=== PATIENT | female | born 1930 | race Caucasian/White ===

== ENCOUNTER 2018-05-28 09:50 | Inpatient (IN) | payer MEDICARE, MEDICAID ==
[2018-05-28] MEDS ORDERED: NORMODYNE PO ONE (10:47)
--- NOTE | 2018-05-28 10:52 | Emergency Department Report ---
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 patient woke up at 9 AM with symptoms. She will woke up feeling "woozy" and had difficulty gripping and holding objects with her left hand. She denies any pain, nausea, vomiting, chest pain, or shortness of breath. She also complains of bilateral lower extremity weakness. Patient takes aspirin 81 mg every morning, labetalol 100 mg twice a day and losartan 100 mg at night. She did not take any of her medications this morning because she did not feel good. She is otherwise compliant. PMD: Anaya duran - Related Data Allergies/Adverse Reactions: Allergies Allergy/AdvReac Type Severity Reaction Status Date / Time No Known Allergies Allergy Unverified 05/28/18 10:18 ED Review of Systems ROS: Stated complaint: HEAD PAIN/HTN Other details as noted in HPI Comment: All other systems reviewed and negative ED Past Medical Hx - Past Medical History Previous Medical History?: Yes Hx Hypertension: Yes - Surgical History Additional Surgical History: right shoulder sx - Social History Smoking Status: Never Smoker ED Neuro Physical Exam - General Limitations: Language Barrier Suspected Stroke: Yes - NIHSS Assessment Interval: Baseline 1a. Level of Consciousness: alert/keenly responsive 1b. LOC Questions: answers 1 question correctly 1c. LOC Commands: performs tasks correctly 2. Best Gaze: normal 3. Visual: no visual loss 4. Facial Palsy: normal symmetrical movement 5b. Motor Arm Right: no drift 5a. Motor Arm Left: no drift 6a. Motor Leg Left: no drift 6b. Motor Leg Right: no drift 7. Limb Ataxia: absent 8. Sensory: normal 9. Best Language: no aphasia 10. Dysarthria: normal 11. Extinction/Inattention: no abnormality Total Score: 1 Stroke Severity: Minor Stroke - Other Other exam information: General: No limitations, patient is alert in no acute distress Head exam: Atraumatic, normocephalic Eyes exam: Normal appearance, pupils equal reactive to light, extraocular movements intact ENT: Moist mucous membrane, normal oropharynx Neck exam: Normal inspection, full range of motion, no meningismus nontender Respiratory exam: Clear to auscultation bilateral, no wheezes, rales, crackles Cardiovascular: Normal rate and rhythm, normal heart sounds Abdomen: Soft, nondistended, and nontender, with normal bowel sounds, no rebound, or guarding Extremity: Full range of motion normal inspection no deformity Back: Normal Inspection, full range of motion, no tenderness Neurologic: Alert, oriented to place and self and not to year, cranial nerves intact, answers left hand ocular care technologist appear weak but the patient encouraged to squeeze harder it if is equal to the right side. Psychiatric: normal affect, normal mood Skin: Warm, dry, intact ED Course Vital Signs 05/28/18 05/28/18 05/28/18 10:08 10:11 10:15 Temperature 97.0 F L Pulse Rate 74 76 69 Respiratory 12 16 17 Rate Blood Pressure 222/80 Blood Pressure [Right] O2 Sat by Pulse 98 99 98 Oximetry 05/28/18 05/28/18 05/28/18 10:16 10:31 10:45 Temperature 97.0 F L Pulse Rate 76 71 79 Respiratory 16 18 12 Rate Blood Pressure 222/80 204/83 Blood Pressure 222/80 [Right] O2 Sat by Pulse 99 98 99 Oximetry 05/28/18 05/28/18 05/28/18 11:01 11:15 11:31 Temperature Pulse Rate 74 82 73 Respiratory 16 11 L 14 Rate Blood Pressure 204/83 204/83 204/83 Blood Pressure [Right] O2 Sat by Pulse 97 99 99 Oximetry 05/28/18 05/28/18 05/28/18 11:45 12:01 12:15 Temperature Pulse Rate 78 74 75 Respiratory 12 16 17 Rate Blood Pressure 191/78 204/83 190/73 Blood Pressure [Right] O2 Sat by Pulse 97 97 97 Oximetry 05/28/18 05/28/18 12:31 12:45 Temperature Pulse Rate 72 72 Respiratory 18 20 Rate Blood Pressure 190/73 176/62 Blood Pressure [Right] O2 Sat by Pulse 97 97 Oximetry - Lab Data Result diagrams: 05/28/18 10:49 05/28/18 10:49 Lab Results 05/28/18 05/28/18 05/28/18 Range/Units 10:49 10:49 10:49 WBC 5.6 (4.5-11.0) K/mm3 RBC 4.15 (3.65-5.03) M/mm3 Hgb 12.7 (10.1-14.3) gm/dl Hct 37.1 (30.3-42.9) % MCV 90 (79-97) fl MCH 31 (28-32) pg MCHC 34 (30-34) % RDW 13.1 L (13.2-15.2) % Plt Count 149 (140-440) K/mm3 Lymph % (Auto) 25.5 (13.4-35.0) % [place] % (Auto) 8.6 H (0.0-7.3) % Eos % (Auto) 1.7 (0.0-4.3) % Baso % (Auto) 0.3 (0.0-1.8) % Lymph # 1.4 (1.2-5.4) K/mm3 [place] # 0.5 (0.0-0.8) K/mm3 Eos # 0.1 (0.0-0.4) K/mm3 Baso # 0.0 (0.0-0.1) K/mm3 Seg Neutrophils % 63.9 (40.0-70.0) % Seg Neutrophils # 3.6 (1.8-7.7) K/mm3 PT 12.4 (12.2-14.9) Sec. INR 0.89 (0.87-1.13) APTT 43.9 H (24.2-36.6) Sec. Thrombin Time 16.3 (15.1-19.6) Sec. Sodium (137-145) mmol/L Potassium (3.6-5.0) mmol/L Chloride (98-107) mmol/L Carbon Dioxide (22-30) mmol/L Anion Gap mmol/L BUN (7-17) mg/dL Creatinine (0.7-1.2) mg/dL Estimated GFR ml/min BUN/Creatinine Ratio % Glucose (65-100) mg/dL Calcium (8.4-10.2) mg/dL Total Bilirubin (0.1-1.2) mg/dL AST (5-40) units/L ALT (7-56) units/L Alkaline Phosphatase (35-129) units/L Total Creatine Kinase 77 (30-135) units/L CK-MB (CK-2) 3.5 (0.0-4.0) ng/mL CK-MB (CK-2) Rel Index 4.5 H (0-4) Troponin T 0.018 (0.00-0.029) ng/mL Total Protein (6.3-8.2) g/dL Albumin (3.9-5) g/dL Albumin/Globulin Ratio % Urine Color (Yellow) Urine Turbidity (Clear) Urine pH (5.0-7.0) Ur Specific [place] (1.003-1.030) Urine Protein (Negative) mg/dL Urine Glucose (UA) (Negative) mg/dL Urine Ketones (Negative) mg/dL Urine Blood (Negative) Urine Nitrite (Negative) Urine Bilirubin (Negative) Urine Urobilinogen (<2.0) mg/dL Ur Leukocyte Esterase (Negative) Urine WBC (Auto) (0.0-6.0) /HPF Urine RBC (Auto) (0.0-6.0) /HPF 05/28/18 05/28/18 Range/Units 10:49 11:59 WBC (4.5-11.0) K/mm3 RBC (3.65-5.03) M/mm3 Hgb (10.1-14.3) gm/dl Hct (30.3-42.9) % MCV (79-97) fl MCH (28-32) pg MCHC (30-34) % RDW (13.2-15.2) % Plt Count (140-440) K/mm3 Lymph % (Auto) (13.4-35.0) % [place] % (Auto) (0.0-7.3) % Eos % (Auto) (0.0-4.3) % Baso % (Auto) (0.0-1.8) % Lymph # (1.2-5.4) K/mm3 Baker # (0.0-0.8) K/mm3 Eos # (0.0-0.4) K/mm3 Baso # (0.0-0.1) K/mm3 Seg Neutrophils % (40.0-70.0) % Seg Neutrophils # (1.8-7.7) K/mm3 PT (12.2-14.9) Sec. INR (0.87-1.13) APTT (24.2-36.6) Sec. Thrombin Time (15.1-19.6) Sec. Sodium 142 (137-145) mmol/L Potassium 4.3 (3.6-5.0) mmol/L Chloride 102.7 (98-107) mmol/L Carbon Dioxide 26 (22-30) mmol/L Anion Gap 18 mmol/L BUN 22 H (7-17) mg/dL Creatinine 1.2 (0.7-1.2) mg/dL Estimated GFR 43 ml/min BUN/Creatinine Ratio 18 % Glucose 98 (65-100) mg/dL Calcium 9.3 (8.4-10.2) mg/dL Total Bilirubin 0.50 (0.1-1.2) mg/dL AST 20 (5-40) units/L ALT 17 (7-56) units/L Alkaline Phosphatase 48 (35-129) units/L Total Creatine Kinase (30-135) units/L CK-MB (CK-2) (0.0-4.0) ng/mL CK-MB (CK-2) Rel Index (0-4) Troponin T (0.00-0.029) ng/mL Total Protein 6.4 (6.3-8.2) g/dL Albumin 4.2 (3.9-5) g/dL Albumin/Globulin Ratio 1.9 % Urine Color Straw (Yellow) Urine Turbidity Clear (Clear) Urine pH 6.0 (5.0-7.0) Ur Specific [place] 1.005 (1.003-1.030) Urine Protein <15 mg/dl (Negative) mg/dL Urine Glucose (UA) Neg (Negative) mg/dL Urine Ketones Neg (Negative) mg/dL Urine Blood Sm (Negative) Urine Nitrite Neg (Negative) Urine Bilirubin Neg (Negative) Urine Urobilinogen < 2.0 (<2.0) mg/dL Ur Leukocyte Esterase Sm (Negative) Urine WBC (Auto) < 1.0 (0.0-6.0) /HPF Urine RBC (Auto) 1.0 (0.0-6.0) /HPF - EKG Data -: EKG Interpreted by Ut EKG shows normal: sinus rhythm, axis (qrs -6), QRS complexes (qrsd 89), ST-T waves (lvh with repol) Rate: normal (76) When compared to previous EKG there are: previous EKG unavailable - Radiology Data Radiology results: report reviewed CT head: 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 No acute intracranial process noted. No change since 2012 - Medical Decision Making Labs and imaging tests do not show any acute findings. Patient will be admitted to the hospital for further workup and evaluation. Provided aspirin and a dose of her a.m. blood pressure medications - Differential Diagnosis TIA, CVA, radiculopathy, neuropathy, infection, dehydration - Thrombolytic Inclusion/Exclusion Thrombolytic Exclusion Criteria: Symptom Onset > 3 Hours (woke up with symptoms) Critical Care Time: No Critical care attestation.: If time is entered above; I have spent that time in minutes in the direct care of this critically ill patient, excluding procedure time. ED Disposition Clinical Impression: Left hand weakness, HTN (hypertension), Dizziness Disposition: -09 OP ADMIT IP TO THIS HOSP Is pt being admited?: Yes Condition: Stable Time of Disposition: 13:11 (Dr Ayala/hosp)
[2018-05-28 11:04] LABS: Basophils % (Auto) 0.3 % (0.0-1.8); Eosinophils # (Auto) 0.1 K/mm3 (0.0-0.4); Eosinophils % (Auto) 1.7 % (0.0-4.3); Hematocrit 37.1 % (30.3-42.9); Hemoglobin 12.7 gm/dl (10.1-14.3); Lymphocytes # (Auto) 1.4 K/mm3 (1.2-5.4); Lymphocytes % (Auto) 25.5 % (13.4-35.0); Mean Corpuscular HGB Conc 34 % (30-34); Mean Corpuscular Volume 90 fl (79-97); Monocytes # (Auto) 0.5 K/mm3 (0.0-0.8); Monocytes % (Auto) 8.6 % (0.0-7.3); Platelet Count 149 K/mm3 (140-440); Red Blood Count 4.15 M/mm3 (3.65-5.03); Red Cell Distribution Width 13.1 % (13.2-15.2)
[2018-05-28 11:25] LABS: INR 0.89 (0.87-1.13)
--- NOTE | 2018-05-28 11:25 | Cat Scan Report ---
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 TECHNIQUE: Sequential CT images without contrast. FINDINGS: Compared to a CT head dated 03/20/12. Diffuse cortical volume loss and chronic white matter changes are again noted. These findings appear appropriate for this persons age. A 1.1 cm chronic focal infarct in the left subinsular region is unchanged. No evidence for hemorrhage, mass or large area of acute ischemia on noncontrast CT. No extra-axial fluid collection. The posterior fossa and contents remain unremarkable. The calvarium, sinuses and mastoid air cells are within normal limits. 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 No acute intracranial process noted. No change since 2011.
[2018-05-28 11:26] LABS: Partial Thromboplastin Time 43.9 Sec. (24.2-36.6); Thrombin Time 16.3 Sec. (15.1-19.6)
[2018-05-28 11:27] LABS: Creatine Kinase MB 3.5 ng/mL (0.0-4.0)
[2018-05-28 11:29] LABS: Albumin 4.2 g/dL (3.9-5); Calcium 9.3 mg/dL (8.4-10.2)
[2018-05-28 12:07] LABS: Bilirubin,Urine NEG (Negative); Blood,Urine SM (Negative); Color,Urine Straw (Yellow); Protein,Urine <15 mg/dL mg/dL (Negative); Urobilinogen,Urine < 2.0 mg/dL (<2.0); WBC,Urine < 1.0 /HPF (0.0-6.0)
[2018-05-28] MEDS ORDERED: ASPIRIN PO ONE (13:09)
[2018-05-28] MEDS ORDERED: ASPIRIN ONE (14:04)
[2018-05-28] MEDS: APRESOLINE IV PRN (20:05)
--- NOTE | 2018-05-28 21:43 | History and Physical Report ---
History of Present Illness Date of examination: 05/28/18 Date of admission: 05/28/18 13:23 Medications and Allergies Allergies Allergy/AdvReac Type Severity Reaction Status Date / Time No Known Allergies Allergy Unverified 05/28/18 10:18 Home Medications Medication Instructions Recorded Confirmed Last Taken Type Aspirin [Adult Aspirin] 81 mg PO DAILY 05/28/18 05/28/18 Unknown History Labetalol [Normodyne TAB] 100 mg PO BID 05/28/18 05/28/18 Unknown History Losartan [Cozaar] 100 mg PO QDAY 05/28/18 05/28/18 Unknown History Active Meds: Active Medications Hydralazine HCl (Apresoline) 10 mg IV Q6HR PRN PRN Reason: Increased Blood Pressure Stop: 06/01/18 19:39 Last Admin: 05/28/18 20:05 Dose: 10 mg Documented by: Pneumococcal Polyvalent Vaccine (Pneumovax 23) 0.5 ml IM .ONCE ONE Stop: 05/29/18 12:01 Exam - Constitutional Vitals: Temp Pulse Resp BP Pulse Ox 98.1 F 76 18 206/73 97 05/28/18 19:25 05/28/18 20:05 05/28/18 19:25 05/28/18 20:05 05/28/18 19:25 Results - Labs CBC & Chem 7: 05/28/18 10:49 05/28/18 10:49 Labs: Laboratory Last Values WBC 5.6 K/mm3 (4.5-11.0) 05/28/18 10:49 RBC 4.15 M/mm3 (3.65-5.03) 05/28/18 10:49 Hgb 12.7 gm/dl (10.1-14.3) 05/28/18 10:49 Hct 37.1 % (30.3-42.9) 05/28/18 10:49 MCV 90 fl (79-97) 05/28/18 10:49 MCH 31 pg (28-32) 05/28/18 10:49 MCHC 34 % (30-34) 05/28/18 10:49 RDW 13.1 % (13.2-15.2) L 05/28/18 10:49 Plt Count 149 K/mm3 (140-440) 05/28/18 10:49 Lymph % (Auto) 25.5 % (13.4-35.0) 05/28/18 10:49 [place] % (Auto) 8.6 % (0.0-7.3) H 05/28/18 10:49 Eos % (Auto) 1.7 % (0.0-4.3) 05/28/18 10:49 Baso % (Auto) 0.3 % (0.0-1.8) 05/28/18 10:49 Lymph # 1.4 K/mm3 (1.2-5.4) 05/28/18 10:49 [place] # 0.5 K/mm3 (0.0-0.8) 05/28/18 10:49 Eos # 0.1 K/mm3 (0.0-0.4) 05/28/18 10:49 Baso # 0.0 K/mm3 (0.0-0.1) 05/28/18 10:49 Seg Neutrophils % 63.9 % (40.0-70.0) 05/28/18 10:49 Seg Neutrophils # 3.6 K/mm3 (1.8-7.7) 05/28/18 10:49 PT 12.4 Sec. (12.2-14.9) 05/28/18 10:49 INR 0.89 (0.87-1.13) 05/28/18 10:49 APTT 43.9 Sec. (24.2-36.6) H 05/28/18 10:49 Thrombin Time 16.3 Sec. (15.1-19.6) 05/28/18 10:49 Sodium 142 mmol/L (137-145) 05/28/18 10:49 Potassium 4.3 mmol/L (3.6-5.0) 05/28/18 10:49 Chloride 102.7 mmol/L (98-107) 05/28/18 10:49 Carbon Dioxide 26 mmol/L (22-30) 05/28/18 10:49 Anion Gap 18 mmol/L 05/28/18 10:49 BUN 22 mg/dL (7-17) H 05/28/18 10:49 Creatinine 1.2 mg/dL (0.7-1.2) 05/28/18 10:49 Estimated GFR 43 ml/min 05/28/18 10:49 BUN/Creatinine Ratio 18 % 05/28/18 10:49 Glucose 98 mg/dL (65-100) 05/28/18 10:49 Calcium 9.3 mg/dL (8.4-10.2) 05/28/18 10:49 Total Bilirubin 0.50 mg/dL (0.1-1.2) 05/28/18 10:49 AST 20 units/L (5-40) 05/28/18 10:49 ALT 17 units/L (7-56) 05/28/18 10:49 Alkaline Phosphatase 48 units/L (35-129) 05/28/18 10:49 Total Creatine Kinase 77 units/L (30-135) 05/28/18 10:49 CK-MB (CK-2) 3.5 ng/mL (0.0-4.0) 05/28/18 10:49 CK-MB (CK-2) Rel Index 4.5 (0-4) H 05/28/18 10:49 Troponin T 0.018 ng/mL (0.00-0.029) 05/28/18 10:49 Total Protein 6.4 g/dL (6.3-8.2) 05/28/18 10:49 Albumin 4.2 g/dL (3.9-5) 05/28/18 10:49 Albumin/Globulin Ratio 1.9 % 05/28/18 10:49 Urine Color Straw (Yellow) 05/28/18 11:59 Urine Turbidity Clear (Clear) 05/28/18 11:59 Urine pH 6.0 (5.0-7.0) 05/28/18 11:59 Ur Specific [place] 1.005 (1.003-1.030) 05/28/18 11:59 Urine Protein <15 mg/dl mg/dL (Negative) 05/28/18 11:59 Urine Glucose (UA) Neg mg/dL (Negative) 05/28/18 11:59 Urine Ketones Neg mg/dL (Negative) 05/28/18 11:59 Urine Blood Sm (Negative) 05/28/18 11:59 Urine Nitrite Neg (Negative) 05/28/18 11:59 Urine Bilirubin Neg (Negative) 05/28/18 11:59 Urine Urobilinogen < 2.0 mg/dL (<2.0) 05/28/18 11:59 Ur Leukocyte Esterase Sm (Negative) 05/28/18 11:59 Urine WBC (Auto) < 1.0 /HPF (0.0-6.0) 05/28/18 11:59 Urine RBC (Auto) 1.0 /HPF (0.0-6.0) 05/28/18 11:59
[2018-05-28] MEDS ORDERED: NON-FORMULARY (Losartan [Cozaar] 100 MG) PO SCH (21:45)
[2018-05-28] MEDS ORDERED: ZOFRAN IV PRN (21:46)
[2018-05-28] MEDS ORDERED: DILAUDID IV PRN (21:46)
[2018-05-28] MEDS ORDERED: SODIUM CHLORIDE FLUSH SYRINGE 10 ML IV PRN ×2 (21:46→21:49)
[2018-05-28] MEDS ORDERED: PEPCID PO SCH (22:00)
[2018-05-28] MEDS ORDERED: COZAAR PO SCH (22:00)
[2018-05-28] MEDS: COZAAR PO SCH (22:29)
[2018-05-28] MEDS: PEPCID PO SCH (22:30)
[2018-05-28] MEDS: NORMODYNE PO SCH (22:30)
[2018-05-28] MEDS: TYLENOL PO PRN (22:33)
[2018-05-29] MEDS: HALFPRIN EC PO SCH ×2 (05:13→11:58)
[2018-05-29] MEDS: SODIUM CHLORIDE FLUSH SYRINGE 10 ML IV SCH ×3 (05:14→22:28)
[2018-05-29 05:25] LABS: Basophils % (Auto) 0.4 % (0.0-1.8); Eosinophils # (Auto) 0.1 K/mm3 (0.0-0.4); Eosinophils % (Auto) 2.3 % (0.0-4.3); Hematocrit 33.4 % (30.3-42.9); Hemoglobin 11.7 gm/dl (10.1-14.3); Lymphocytes # (Auto) 2.1 K/mm3 (1.2-5.4); Lymphocytes % (Auto) 35.1 % (13.4-35.0); Mean Corpuscular HGB Conc 35 % (30-34); Mean Corpuscular Volume 89 fl (79-97); Monocytes # (Auto) 0.6 K/mm3 (0.0-0.8); Monocytes % (Auto) 10.8 % (0.0-7.3); Platelet Count 158 K/mm3 (140-440); Red Blood Count 3.75 M/mm3 (3.65-5.03); Red Cell Distribution Width 12.7 % (13.2-15.2)
[2018-05-29] MEDS: APRESOLINE IV PRN (05:41)
--- NOTE | 2018-05-29 06:35 | Event Note ---
Date: 05/28/18 See H/p in reports TIA
[2018-05-29 06:43] LABS: Albumin 3.7 g/dL (3.9-5); Calcium 8.9 mg/dL (8.4-10.2); Chol/HDL Ratio 3.8 %
--- NOTE | 2018-05-29 07:26 | History and Physical Report ---
CHIEF COMPLAINT: Left-sided weakness since a.m. HISTORY OF PRESENT ILLNESS: An 87-year-old female with a past medical history of hypertension, presents with left-sided weakness since 9 a.m. The patient felt woozy and had difficulty gripping objects in the left hand. No chest pain or shortness of breath. The patient takes aspirin 81 mg and labetalol 100 mg twice a day. The gripping weakness resolved to some extent in the Emergency Room. The patient is being admitted for possible transient ischemic attack. No chest pain. No exacerbating or relieving factors. PAST MEDICAL HISTORY: Hypertension. PAST SURGICAL HISTORY: Right shoulder surgery. SOCIAL HISTORY: Does not smoke. Family is supportive. FAMILY HISTORY: Hypertension. 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 There is a language barrier present. Review of systems is otherwise negative. PHYSICAL EXAMINATION: GENERAL: Elderly female, cooperative during examination. VITAL SIGNS: Blood pressure is 200/60 and repeat blood pressure is ____, temperature 98.1, pulse is 82, respirations 17. HEENT: Unremarkable. Pupils equal and reactive. NECK: Supple, no lymphadenopathy, no thyromegaly. LUNGS: Clear to auscultation and percussion. Good air entry. CARDIOVASCULAR: S1, S2 heard. No gallop, no murmur, no rub. Apical impulse in left fifth intercostal space and midclavicular line. ABDOMEN: Soft and benign. No hepatosplenomegaly. No guarding, no rigidity. Hernial orifices are normal. EXTREMITIES: Good pedal pulses. No pedal edema. CENTRAL NERVOUS SYSTEM: Alert and oriented x 4, nonfocal exam. Left upper extremity weakness is slightly present. Power is otherwise 5/5 in left lower extremity with 4/5 in left upper extremity. LABORATORY DATA: Electrolytes are normal. BUN and creatinine are 22 and 1.2. H and H are normal, 12.7 and 37.1. Urine normal. DIAGNOSTIC DATA: CT of the head shows atrophy and microangiopathic ischemic disease. Focal chronic infarcts in the left subinsular region. EKG, normal sinus rhythm. ASSESSMENT AND PLAN: 1. Transient ischemic attack, nearly resolved. The patient to get MRI/MRA, echocardiogram, and carotid duplex scan. Also, Neurology consult. Aspirin initiated. 2. Hypertension. Continue antihypertensives. 3. Deep venous thrombosis prophylaxis, Lovenox 40 mg subcutaneous daily and gastrointestinal prophylaxis. [facility]# [id number] ANJU/MANJEET
[2018-05-29] MEDS: PEPCID PO SCH ×2 (11:58→22:28)
[2018-05-29] MEDS ORDERED: AFLURIA QUAD 2018-2019 SYRINGE IM ONE (12:00)
[2018-05-29] MEDS ORDERED: PNEUMOVAX 23 IM ONE (12:00)
[2018-05-29] MEDS: NORMODYNE PO SCH ×2 (12:10→22:27)
[2018-05-29] MEDS: COZAAR PO SCH (12:11)
[2018-05-29] MEDS: TYLENOL PO PRN (12:11)
--- NOTE | 2018-05-29 12:36 | Vascular Lab Report ---
FINAL REPORT EXAM: VL CAROTID DUPLEX BILAT HISTORY: stroke COMPARISON: None. TECHNIQUE: Duplex Doppler ultrasound of the carotid arteries was performed. FINDINGS: There is heterogeneous plaque in the right carotid bulb extending to the right internal carotid arter y, with less than 50 percent stenosis. The right vertebral artery is antegrade in flow. There is heterogeneous plaque in the left carotid bulb extending into the left internal carotid arter y, with elevation of velocities suggestive of 50-69 percent stenosis. The left vertebral artery is no t visualized Peak systolic velocities (cm/sec) are as follows: Right common carotid artery: 97.9 Right internal carotid artery: 112.1 Right external carotid artery: 168.3 Left common carotid artery: 82.8 Left internal carotid artery: 134.7 Left external carotid artery: 118.3 Peak systolic velocity ratio between the right internal carotid artery and the right common carotid a rtery: 1.2 Peak systolic velocity ratio between the left internal carotid artery and left common carotid artery: 1.6 IMPRESSION: 1. Heterogeneous atherosclerotic plaque in the right carotid bulb extending to the right internal car otid artery, with less than 50 percent stenosis. 2. Heterogeneous atherosclerotic plaque in the left carotid bulb extending into the left internal car otid artery, with elevation of the peak systolic velocity 2134.7 centimeters/second, suggestive of 50 -69 percent stenosis. 3. Nonvisualization of the left vertebral artery.
[2018-05-29] MEDS ORDERED: ATIVAN IV PRN (13:08)
--- NOTE | 2018-05-29 14:03 | Consultation ---
History of Present Illness Consult date: 05/29/18 Requesting physician: MANUEL PENNINGTON Reason for Consult: left upper extremity weakness History of present illness: 87 yr old female with hx of hypertension and previous stroke several yrs ago, presented to ED yesterday with complaint of numbness and weakness of the left upper extremity. She awakened in the a.m. with these symptoms. She and her speak Trin[place], so interview was a bit difficult. states that he previous stroke was several yrs ago and she has recovered from it. She has been taking her ASA daily as well as BP meds. She denies chest pain, palpitations. Past History Past Medical History: hypertension, stroke Past Surgical History: Other (right shoulder surgery) Social history: , lives with family. denies: smoking, alcohol abuse Medications and Allergies Allergies Allergy/AdvReac Type Severity Reaction Status Date / Time No Known Allergies Allergy Unverified 05/28/18 10:18 Home Medications Medication Instructions Recorded Confirmed Last Taken Type Aspirin [Adult Aspirin] 81 mg PO DAILY 05/28/18 05/28/18 Unknown History Labetalol [Normodyne TAB] 100 mg PO BID 05/28/18 05/28/18 Unknown History Losartan [Cozaar] 100 mg PO QDAY 05/28/18 05/28/18 Unknown History Active Meds: Active Medications Acetaminophen (Tylenol) 650 mg PO Q4H PRN PRN Reason: Pain MILD(1-3)/Fever >100.5/AMADO Last Admin: 05/29/18 12:11 Dose: 650 mg Documented by: Aspirin (Halfprin Ec) 81 mg PO DAILY [facility] Last Admin: 05/29/18 11:58 Dose: 81 mg Documented by: Atorvastatin Calcium (Lipitor) 40 mg PO QHS [facility] Last Admin: 05/28/18 22:30 Dose: 40 mg Documented by: Famotidine (Pepcid) 10 mg PO BID [facility] Last Admin: 05/29/18 11:58 Dose: 10 mg Documented by: Hydralazine HCl (Apresoline) 10 mg IV Q6HR PRN PRN Reason: Increased Blood Pressure Stop: 06/01/18 19:39 Last Admin: 05/29/18 05:41 Dose: 10 mg Documented by: Hydromorphone HCl (Dilaudid) 0.25 mg IV Q3H PRN PRN Reason: Pain, Moderate (4-6) Labetalol HCl (Normodyne) 100 mg PO BID [facility] Last Admin: 05/29/18 12:10 Dose: 100 mg Documented by: Lorazepam (Ativan) 2 mg IV Q4H PRN PRN Reason: Agitation Losartan Potassium (Cozaar) 100 mg PO QDAY [facility] Last Admin: 05/29/18 12:11 Dose: 100 mg Documented by: Ondansetron HCl (Zofran) 4 mg IV Q8H PRN PRN Reason: Nausea And Vomiting Sodium Chloride (Sodium Chloride Flush Syringe 10 Ml) 10 ml IV BID [facility] Last Admin: 05/29/18 12:14 Dose: 10 ml Documented by: Sodium Chloride (Sodium Chloride Flush Syringe 10 Ml) 10 ml IV PRN PRN PRN Reason: LINE FLUSH Sodium Chloride (Sodium Chloride Flush Syringe 10 Ml) 10 ml IV PRN PRN PRN Reason: LINE FLUSH Review of Systems All systems: negative (Pt. speaks Trin[place], so difficullt to obtain ROS) Physical Examination - Vital Signs Vital Signs: Vital Signs Pulse Resp Pulse Ox 74 12 98 05/28/18 10:08 05/28/18 10:08 05/28/18 10:08 - Physical Exam Narrative exam: Neurological exam - Lying in bed comfortably. Responds appropriately, follows commands well. Speech - fluent in [place], helping. CMN's - EOMs full, no nystagmus. V-1 thru V-3 intact, face symmetric Hearing down on the left. tongue midline. Motor - symmetric in lower extremities. Rt. upper extremity - full strength. Left arm - full range of motion. finger extensors - 3/5, interossei - 3-/5 straddle carrier operator - 3/5, supinate/pronate 4/5. Proximal strength - 4+/5 Reflexes - +1 on rt., trace on leeft. Sensory - decreased touch/pin in left fingers to the wrist. Remaining limbs intact. Cerebellar - FTN - pastpointing on the left Justice intact. incomplete on left. Cannot do fine finger movements with left hand. - Assessment Assessment Interval: Baseline - Level of Consciousness 1a. Level of Consciousness: alert/keenly responsive - LOC Questions 1b. LOC Questions: answers 1 question correctly - LOC Command 1c. LOC Commands: performs tasks correctly - Best Gaze 2. Best Gaze: normal - Visual 3. Visual: no visual loss - Facial Palsy 4. Facial Palsy: normal symmetrical movement - Motor Arm 5b. Motor Arm Right: no drift - Motor Leg 6a. Motor Leg Left: no drift - Limb Ataxia 7. Limb Ataxia: absent - Sensory 8. Sensory: normal - Best Language 9. Best Language: no aphasia - Dysarthria 10. Dysarthria: normal - Extinction and Inattention 11. Extinction/Inattention: no abnormality Results - Laboratory Findings CBC and BMP: 05/29/18 04:59 05/29/18 04:49 Abnormal Lab Findings: Abnormal Labs 05/28/18 05/28/18 05/28/18 10:49 10:49 10:49 MCHC RDW 13.1 L Lymph % (Auto) [place] % (Auto) 8.6 H APTT 43.9 H BUN Glucose CK-MB (CK-2) Rel Index 4.5 H Total Protein Albumin LDL Cholesterol Direct 05/28/18 05/29/18 05/29/18 10:49 04:49 04:59 MCHC 35 H RDW 12.7 L Lymph % (Auto) 35.1 H [place] % (Auto) 10.8 H APTT BUN 22 H 27 H Glucose 102 H CK-MB (CK-2) Rel Index Total Protein 6.0 L Albumin 3.7 L LDL Cholesterol Direct 140 H Assessment and Plan 87 yr old female with hx of hypertension, presented to ED yesterday having awakened with numbness and weakness of the left hand. ER notes also mention that she felt "woozy" and a little off balance in the legs. 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 Suspect pt has had another subcortical event which would involve rt. hemisphere. Echo - reveals hyperdynamic lt. ventricle. dopplers reveal 50 to 60% occlusion, atherosclerotic disease. Plan - add atorvastatin to her regimen MRI scan pending. PT/OT
--- NOTE | 2018-05-29 14:16 | Progress Note ---
Assessment and Plan Possible CVA --Monitor the patient to remote telemetry -Continue on on aspirin and statin, will follow recommendation of neurology - CT scan of the head obtained in the ER and shows no acute intracranial process -Wait for MRI of the head, carotid Doppler, 2-D echocardiogram results - We will also get hemoglobin A1c level and fasting lipid panel - We'll place on GI prophylaxis to avoid stress ulcer - Consult PTOT and speech therapist - Keep the patient nothing by mouth for now - IV hydration with D5 normal saline, - monitor blood glucose and place on sliding scale of insulin, as patient will be nothing by mouth and on D5 - Further management will be based on pending lab results and imaging studies Hypertension, will resume antihypertensive Mild to moderate malnutrition, will consult dietary DVT prophylaxis, Lovenox Physical exam: GENERAL: Elderly female lying on bed appeared to be in no discomfort. HEENT: Normocephalic. Atraumatic. No conjunctival congestion or icterus. Patient has moist mucous membranes. NECK: Supple. Trachea midline. CHEST/LUNGS: Clear to auscultated bilaterally, breathing nonlabored. No wheezes crackles or rhonchi. HEART/CARDIOVASCULAR: Regular in rate and rhythm. S1 and S2 positive. ABDOMEN: Abdomen is soft, nontender. Patient has normal bowel sounds. SKIN: There is no rash. Warm and dry. NEURO: Follows command. MUSCULOSKELETAL: No joint effusion or tenderness. EXTRIMITY: No edema, no cyanosis or clubbing. PSYCH: Cooperative. Subjective Date of service: 05/29/18 Interval history: Patient seen and examined. Medical records and medication list reviewed. No acute event overnight noted by the RN. Patient denies any chest pain or difficulty breathing. Patient is tolerating diet. Discussed plan of care at bedside with patient and her family. Objective - Constitutional Vitals: Vital Signs - 12hr 05/29/18 05/29/18 05/29/18 04:35 05:41 10:00 Temperature 98.1 F Pulse Rate 78 72 Respiratory 18 18 Rate Blood Pressure 166/139 179/59 O2 Sat by Pulse 96 Oximetry 05/29/18 05/29/18 12:10 12:11 Temperature Pulse Rate 90 90 Respiratory Rate Blood Pressure 160/78 160/77 O2 Sat by Pulse Oximetry - Labs CBC & Chem 7: 05/29/18 04:59 05/29/18 04:49 Labs: Abnormal lab results 05/29/18 05/29/18 Range/Units 04:49 04:59 MCHC 35 H (30-34) % RDW 12.7 L (13.2-15.2) % Lymph % (Auto) 35.1 H (13.4-35.0) % [place] % (Auto) 10.8 H (0.0-7.3) % BUN 27 H (7-17) mg/dL Glucose 102 H (65-100) mg/dL Total Protein 6.0 L (6.3-8.2) g/dL Albumin 3.7 L (3.9-5) g/dL LDL Cholesterol Direct 140 H (50-130) mg/dL
[2018-05-30] MEDS: APRESOLINE IV PRN (00:09)
[2018-05-30] MEDS: PEPCID PO SCH ×2 (09:55→22:00)
[2018-05-30] MEDS: COZAAR PO SCH (09:55)
[2018-05-30] MEDS: NORMODYNE PO SCH ×2 (09:55→22:01)
[2018-05-30] MEDS: SODIUM CHLORIDE FLUSH SYRINGE 10 ML IV SCH ×2 (09:55→22:02)
[2018-05-30] MEDS: HALFPRIN EC PO SCH (09:55)
[2018-05-30] MEDS ORDERED: PNEUMOVAX 23 IM ONE (12:00)
[2018-05-30] MEDS ORDERED: AFLURIA QUAD 2018-2019 SYRINGE IM ONE (12:00)
--- NOTE | 2018-05-30 18:20 | Progress Note ---
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 Suspect pt has had another subcortical event which would involve rt. hemisphere. Hypertension, will resume antihypertensive Mild to moderate malnutrition, will consult dietary DVT prophylaxis, Lovenox Physical exam: GENERAL: Elderly female lying on bed appeared to be in no discomfort. HEENT: Normocephalic. Atraumatic. No conjunctival congestion or icterus. Patient has moist mucous membranes. NECK: Supple. Trachea midline. CHEST/LUNGS: Clear to auscultated bilaterally, breathing nonlabored. No wheezes crackles or rhonchi. HEART/CARDIOVASCULAR: Regular in rate and rhythm. S1 and S2 positive. ABDOMEN: Abdomen is soft, nontender. Patient has normal bowel sounds. SKIN: There is no rash. Warm and dry. NEURO: Follows command. MUSCULOSKELETAL: No joint effusion or tenderness. EXTRIMITY: No edema, no cyanosis or clubbing. PSYCH: Cooperative. Subjective Date of service: 05/30/18 Interval history: Patient seen and examined. Medical records and medication list reviewed. No acute event overnight noted by the RN. Patient denies any chest pain or difficulty breathing. Patient is tolerating diet. Discussed plan of care at bedside with patient and her family. Objective - Constitutional Vitals: Vital Signs - 12hr 05/30/18 05/30/18 08:20 08:48 Temperature 98.6 F Pulse Rate 94 H Pulse Rate [ 60 From Monitor] Respiratory 20 18 Rate Blood Pressure 179/58 O2 Sat by Pulse 98 Oximetry - Labs CBC & Chem 7: 05/29/18 04:59 05/29/18 04:49
[2018-05-31] MEDS: APRESOLINE IV PRN ×2 (06:00→18:40)
[2018-05-31] MEDS: COZAAR PO SCH (11:17)
[2018-05-31] MEDS: NORMODYNE PO SCH ×2 (11:18→22:50)
[2018-05-31] MEDS: PEPCID PO SCH ×2 (11:18→22:50)
[2018-05-31] MEDS: HALFPRIN EC PO SCH (11:18)
[2018-05-31] MEDS: SODIUM CHLORIDE FLUSH SYRINGE 10 ML IV SCH ×2 (11:19→22:50)
--- NOTE | 2018-05-31 16:16 | Progress Note ---
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 Suspect pt has had another subcortical event which would involve rt. hemisphere. 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 HEENT: Normocephalic. Atraumatic. No conjunctival congestion or icterus. Pat ient has moist mucous membranes. NECK: Supple. Trachea midline. CHEST/LUNGS: Clear to auscultated bilaterally, breathing nonlabored. No wheezes crackles or rhonchi. HEART/CARDIOVASCULAR: Regular in rate and rhythm. S1 and S2 positive. ABDOMEN: Abdomen is soft, nontender. Patient has normal bowel sounds. SKIN: There is no rash. Warm and dry. NEURO: Follows command. MUSCULOSKELETAL: No joint effusion or tenderness. EXTRIMITY: No edema, no cyanosis or clubbing. PSYCH: Cooperative. Subjective Date of service: 05/31/18 Interval history: Patient seen and examined. Medical records and medication list reviewed. No acute event overnight noted by the RN. Patient denies any chest pain or difficulty breathing. Patient is tolerating diet. Discussed plan of care at bedside with patient and her family. Objective - Constitutional Vitals: Vital Signs - 12hr 05/31/18 05/31/18 05/31/18 04:26 06:00 07:57 Temperature 98.0 F 98.2 F Pulse Rate 74 74 105 H Respiratory 15 18 Rate Blood Pressure 176/67 176/67 145/49 O2 Sat by Pulse 95 93 Oximetry 05/31/18 05/31/18 05/31/18 08:53 11:17 11:18 Temperature Pulse Rate 105 H 105 H Respiratory 18 Rate Blood Pressure 145/49 145/49 O2 Sat by Pulse Oximetry 05/31/18 11:33 Temperature 97.9 F Pulse Rate 95 H Respiratory 18 Rate Blood Pressure 172/72 O2 Sat by Pulse 100 Oximetry - Labs CBC & Chem 7: 05/29/18 04:59 05/29/18 04:49
[2018-06-01] MEDS: APRESOLINE IV PRN (07:10)
[2018-06-01] MEDS: HALFPRIN EC PO SCH (10:40)
[2018-06-01] MEDS: PEPCID PO SCH ×2 (10:40→21:49)
[2018-06-01] MEDS: NORMODYNE PO SCH ×2 (10:40→21:50)
[2018-06-01] MEDS: COZAAR PO SCH (10:40)
[2018-06-01] MEDS: SODIUM CHLORIDE FLUSH SYRINGE 10 ML IV SCH ×2 (10:40→21:51)
--- NOTE | 2018-06-01 14:16 | Consultation ---
History of Present Illness Consult date: 06/01/18 Requesting physician: RONAL CALZADA Consult reason: other (mitral stenosis) History of present illness: The patient is an 87 yr old female with a history of hypertension and previous stroke approx 20 yrs ago. Pt is lethargic on evaluation (she received Ativan this morning for attempted MRI) and thus HPI is obtained per her son and . Pt presented to ED 0n 05/28 with complaint of numbness and weakness of the left upper extremity and bilateral lower extremities. The symptoms began around 9AM on the morning of admission. Pt did not complain of any chest pain, SOB, palpitations, n/v, diaphoresis, dizziness or syncope. 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 Per neuro, suspect pt has had another subcortical event which would involve rt. hemisphere. 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 Pt underwent echo on 05/28 which was TDS, showed mod to severe LVH, hyperdynamic LV, EF 75-80%, mod to severe MS, mild MR, mild pulm HTN, mod pericardial effusion, no tamponade physiology is noted. Cardiology has been consulted for mitral stenosis. Past History Past Medical History: hypertension, stroke Past Surgical History: Other (right shoulder surgery) Social history: , lives with family. denies: smoking, alcohol abuse Medications and Allergies Allergies Allergy/AdvReac Type Severity Reaction Status Date / Time No Known Allergies Allergy Unverified 05/28/18 10:18 Home Medications Medication Instructions Recorded Confirmed Last Taken Type Aspirin [Adult Aspirin] 81 mg PO DAILY 05/28/18 05/28/18 Unknown History Labetalol [Normodyne TAB] 100 mg PO BID 05/28/18 05/28/18 Unknown History Losartan [Cozaar] 100 mg PO QDAY 05/28/18 05/28/18 Unknown History Active Meds: Active Medications Acetaminophen (Tylenol) 650 mg PO Q4H PRN PRN Reason: Pain MILD(1-3)/Fever >100.5/AMADO Last Admin: 05/29/18 12:11 Dose: 650 mg Documented by: Aspirin (Halfprin Ec) 81 mg PO DAILY [facility] Last Admin: 05/31/18 11:18 Dose: 81 mg Documented by: Atorvastatin Calcium (Lipitor) 40 mg PO QHS [facility] Last Admin: 05/31/18 22:50 Dose: 40 mg Documented by: Famotidine (Pepcid) 10 mg PO BID [facility] Last Admin: 05/31/18 22:50 Dose: 10 mg Documented by: Hydralazine HCl (Apresoline) 10 mg IV Q6HR PRN PRN Reason: Increased Blood Pressure Stop: 06/01/18 19:39 Last Admin: 06/01/18 07:10 Dose: 10 mg Documented by: Hydromorphone HCl (Dilaudid) 0.25 mg IV Q3H PRN PRN Reason: Pain, Moderate (4-6) Labetalol HCl (Normodyne) 200 mg PO BID [facility] Lorazepam (Ativan) 2 mg IV Q4H PRN PRN Reason: Agitation Last Admin: 06/01/18 08:42 Dose: 2 mg Documented by: Losartan Potassium (Cozaar) 100 mg PO QDAY [facility] Last Admin: 05/31/18 11:17 Dose: 100 mg Documented by: Ondansetron HCl (Zofran) 4 mg IV Q8H PRN PRN Reason: Nausea And Vomiting Sodium Chloride (Sodium Chloride Flush Syringe 10 Ml) 10 ml IV BID [facility] Last Admin: 05/31/18 22:50 Dose: 10 ml Documented by: Sodium Chloride (Sodium Chloride Flush Syringe 10 Ml) 10 ml IV PRN PRN PRN Reason: LINE FLUSH Review of Systems ROS unobtainable: due to mental status Physical Examination Vital Signs Pulse Resp Pulse Ox 74 12 98 05/28/18 10:08 05/28/18 10:08 05/28/18 10:08 General appearance: other (lethargic) Cardiac: Positive: Reg Rate and Rhythm, S1/S2, Systolic Murmur, Diastolic Murmur Lungs: Positive: Decreased Breath Sounds Neuro: Positive: Other (unable to assess) Skin: Negative: Rash, Wound Extremities: Absent: edema Results 05/29/18 04:59 05/29/18 04:49 - Imaging and Cardiology Echo: report reviewed (Pt underwent echo on 05/28 which was TDS, showed mod to severe LVH, hyperdynamic LV, EF 75-80%, mod to severe MS, mild MR, mild pulm HTN, mod pericardial effusion, no tamponade physiology is noted. Cardiology has been consulted for mitral stenosis. ) EKG: report reviewed, image reviewed EKG interpretations - Telemetry EKG Rhythm: Sinus Rhythm - EKG Sinus rhythms and dysrhythmias: sinus rhythm Chamber hypertrophy or enlargement: left ventricular hypertro Repolarization changes or abnormalities: repolarization abn secondary to ventricular hypertrophy Assessment and Plan Pt underwent echo on 05/28 which was TDS, showed mod to severe LVH, hyperdynamic LV, EF 75-80%, mod to severe MS, mild MR, mild pulm HTN, mod pericardial effusion, no tamponade physiology is noted. Her mitral stenosis is an incidental finding and she appears comfortable and stable from a cardiac standpoint at this time. However, further evaluation and management may be warranted in the near future once pt is medically stabilized. Follow neuro recs. Pt is currently lethargic and withdrawn (she received Ativan this morning for attempted MRI). Brain MRI pending. Can consider AMY and cardiothoracic surgery consultation pending pt's neurological status improves and pt is agreeable to further eval and management of mitral stenosis. The patient has been seen in conjunction with Dr. Ortiz who agrees with the assessment and plan of care. - Patient Problems (1) Mitral stenosis Current Visit: Yes Status: Chronic (2) Altered mental status Current Visit: Yes Status: Acute (3) CVA (cerebral vascular accident) Current Visit: Yes Status: Suspected (4) HTN (hypertension) Current Visit: Yes Status: Chronic (5) History of CVA (cerebrovascular accident) Current Visit: Yes Status: Chronic
--- NOTE | 2018-06-01 14:45 | Progress Note ---
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 Suspect pt has had another subcortical event which would involve rt. hemisphere. 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 HEENT: Normocephalic. Atraumatic. No conjunctival congestion or icterus. Patient has moist mucous membranes. NECK: Supple. Trachea midline. CHEST/LUNGS: Clear to auscultated bilaterally, breathing nonlabored. No wheezes crackles or rhonchi. HEART/CARDIOVASCULAR: Regular in rate and rhythm. S1 and S2 positive. ABDOMEN: Abdomen is soft, nontender. Patient has normal bowel sounds. SKIN: There is no rash. Warm and dry. NEURO: deeply sleeping MUSCULOSKELETAL: No joint effusion or tenderness. EXTRIMITY: No edema, no cyanosis or clubbing. PSYCH: unable to assess Subjective Date of service: 06/01/18 Interval history: Patient seen and examined. Medical records and medication list reviewed. could not do the MRI today even after giving 2mg of ativan Discussed plan of care at bedside with patient's family. Objective - Constitutional Vitals: Vital Signs - 12hr 06/01/18 06/01/18 06/01/18 04:51 06:00 07:10 Temperature 97.8 F Pulse Rate 87 92 H 113 H Respiratory 17 Rate Blood Pressure 174/60 174/60 O2 Sat by Pulse 96 Oximetry 06/01/18 08:15 Temperature 97.5 F L Pulse Rate 108 H Respiratory 16 Rate Blood Pressure 129/61 O2 Sat by Pulse 97 Oximetry - Labs CBC & Chem 7: 05/29/18 04:59 05/29/18 04:49 Labs: Abnormal lab results 05/31/18 Range/Units 21:07 POC Glucose 112 H (70-105)
--- NOTE | 2018-06-01 16:13 | Consultation ---
History of Present Illness - Reason for Consult Consult date: 06/01/18 generalized weakness and left upper extremity weakness - History of Present Illness Patient with a history of a prior CVA who presents with generalized weakness and left upper extremity weakness. Carotid ultrasound demonstrates minimal narrowing. Patient unable to tolerate MRI secondary to agitation and was given Ativan. Still unable to tolerate MRI, patient somnolent at time of examination. Past History Past Medical History: hypertension, stroke Past Surgical History: Other (right shoulder surgery) Social history: , lives with family. denies: smoking, alcohol abuse Medications and Allergies Allergies Allergy/AdvReac Type Severity Reaction Status Date / Time No Known Allergies Allergy Unverified 05/28/18 10:18 Home Medications Medication Instructions Recorded Confirmed Last Taken Type Aspirin [Adult Aspirin] 81 mg PO DAILY 05/28/18 05/28/18 Unknown History Labetalol [Normodyne TAB] 100 mg PO BID 05/28/18 05/28/18 Unknown History Losartan [Cozaar] 100 mg PO QDAY 05/28/18 05/28/18 Unknown History Active Meds: Active Medications Acetaminophen (Tylenol) 650 mg PO Q4H PRN PRN Reason: Pain MILD(1-3)/Fever >100.5/AMADO Last Admin: 05/29/18 12:11 Dose: 650 mg Documented by: Aspirin (Halfprin Ec) 81 mg PO DAILY [facility] Last Admin: 05/31/18 11:18 Dose: 81 mg Documented by: Atorvastatin Calcium (Lipitor) 40 mg PO QHS [facility] Last Admin: 05/31/18 22:50 Dose: 40 mg Documented by: Famotidine (Pepcid) 10 mg PO BID [facility] Last Admin: 05/31/18 22:50 Dose: 10 mg Documented by: Hydralazine HCl (Apresoline) 10 mg IV Q6HR PRN PRN Reason: Increased Blood Pressure Stop: 06/01/18 19:39 Last Admin: 06/01/18 07:10 Dose: 10 mg Documented by: Hydromorphone HCl (Dilaudid) 0.25 mg IV Q3H PRN PRN Reason: Pain, Moderate (4-6) Labetalol HCl (Normodyne) 200 mg PO BID [facility] Lorazepam (Ativan) 2 mg IV Q4H PRN PRN Reason: Agitation Last Admin: 06/01/18 08:42 Dose: 2 mg Documented by: Losartan Potassium (Cozaar) 100 mg PO QDAY [facility] Last Admin: 05/31/18 11:17 Dose: 100 mg Documented by: Ondansetron HCl (Zofran) 4 mg IV Q8H PRN PRN Reason: Nausea And Vomiting Sodium Chloride (Sodium Chloride Flush Syringe 10 Ml) 10 ml IV BID [facility] Last Admin: 05/31/18 22:50 Dose: 10 ml Documented by: Sodium Chloride (Sodium Chloride Flush Syringe 10 Ml) 10 ml IV PRN PRN PRN Reason: LINE FLUSH Review of Systems ROS unobtainable: due to mental status Exam - Constitutional Vitals: Temp Pulse Resp BP Pulse Ox 97.5 F L 108 H 16 129/61 97 06/01/18 08:15 06/01/18 08:15 06/01/18 08:15 06/01/18 08:15 06/01/18 08:15 General appearance: Present: no acute distress - Respiratory Respiratory effort: normal - Abdominal General gastrointestinal: Present: deferred Female genitourinary: Present: deferred - Rectal Rectal Exam: deferred Results - Labs CBC & Chem 7: 05/29/18 04:59 05/29/18 04:49 Labs: Abnormal lab results 05/31/18 Range/Units 21:07 POC Glucose 112 H (70-105) - Imaging and Cardiology Venous US: image reviewed Assessment and Plan Patient was only minimal narrowing of her carotids. Unable to determine if her neurologic deficits have resolved secondary to somnolence. Reevaluate tomorrow.
[2018-06-02] MEDS: PEPCID PO SCH (09:37)
[2018-06-02] MEDS: NORMODYNE PO SCH ×2 (09:37→14:13)
[2018-06-02] MEDS: HALFPRIN EC PO SCH (09:37)
[2018-06-02] MEDS: SODIUM CHLORIDE FLUSH SYRINGE 10 ML IV SCH (09:39)
[2018-06-02] MEDS: COZAAR PO SCH (09:39)
[2018-06-02 13:13] VITALS: BP 129/54
--- NOTE | 2018-06-02 13:47 | Progress Note ---
Assessment and Plan Pt underwent echo on 05/28 which was TDS, showed mod to severe LVH, hyperdynamic LV, EF 75-80%, mod to severe MS, mild MR, mild pulm HTN, mod pericardial effusion, no tamponade physiology is noted. No clinical evidence of acute heart failure. Her mitral stenosis is an incidental finding and she appears comfortable and stable from a cardiac standpoint at this time. Echo results reviewed with pt and pt's son at bedside and they wish to proceed with conservative medical management at this time. Will follow closely as OP. Pt may discharge from cardiology standpoint. Recommend pt follow up in our office with Dr. Ortiz within 1-2 weeks of hospital discharge ([phone]). The patient has been seen in conjunction with Dr. Ortiz who agrees with the assessment and plan of care. - Patient Problems (1) Mitral stenosis Current Visit: Yes Status: Chronic (2) Altered mental status Current Visit: Yes Status: Acute (3) CVA (cerebral vascular accident) Current Visit: Yes Status: Suspected (4) HTN (hypertension) Current Visit: Yes Status: Chronic (5) History of CVA (cerebrovascular accident) Current Visit: Yes Status: Chronic Subjective Date of service: 06/02/18 Principal diagnosis: MS Interval history: pt resting in bed, alert and oriented. no current complaints. son at bedside. Objective Last Vital Signs Temp 97.8 F 06/02/18 13:10 Pulse 80 06/02/18 13:10 Resp 14 06/02/18 13:10 BP 129/54 06/02/18 13:10 Pulse Ox 95 06/02/18 13:10 - Physical Examination General: No Apparent Distress HEENT: Positive: PERRL, Normocephaly, Mucus Membranes Moist Neck: Positive: neck supple, trachea midline Cardiac: Positive: Reg Rate and Rhythm, S1/S2, Systolic Murmur, Diastolic Murmur Lungs: Positive: clear to auscultation Neuro: Positive: Grossly Intact Abdomen: Negative: Tender Skin: Negative: Rash, Wound Musculoskeletal: No Pain Extremities: Absent: edema - Imaging and Cardiology EKG: report reviewed, image reviewed Echo: report reviewed (Pt underwent echo on 05/28 which was TDS, showed mod to severe LVH, hyperdynamic LV, EF 75-80%, mod to severe MS, mild MR, mild pulm HTN, mod pericardial effusion, no tamponade physiology is noted. Cardiology has been consulted for mitral stenosis. ) - Telemetry EKG Rhythm: Sinus Rhythm - EKG Sinus rhythms and dysrhythmias: sinus rhythm Chamber hypertrophy or enlargement: left ventricular hypertro Repolarization changes or abnormalities: repolarization abn secondary to ventricular hypertrophy
--- NOTE | 2018-06-02 14:35 | Magnetic Resonance Report ---
MRI BRAIN WITHOUT CONTRAST: 06/02/18 CLINICAL: Stroke. COMPARISON: CT Head 05/28/18 TECHNIQUE: Axial diffusion, T1, T2, gradient echo T2*, coronal and axial FLAIR and sagittal T1 sequences on a 1.5 Rhonda magnet. FINDINGS: The ventricles and sulci are large but age-appropriate. Focal restricted diffusion in the right centrum semi-ovale measures 1.4 x 1.1 cm. No other restricted diffusion. No mass or mass effect. No acute/subacute hemorrhage, edema or extra-axial collection. Extensive bilateral periventricular white matter hyperintensities on FLAIR and T2. Numerous tiny hypointense microbleeds are identified on the gradient echo sequence in bilateral cerebral hemispheres and cerebellar hemispheres. Normal pituitary and optic chiasm. The brainstem and cerebellum are normal. Intact vascular flow voids. Normal sinuses. The orbits, and soft tissues are normal. Normal calvarium and skull base. IMPRESSION: 1. An acute/subacute focal 1.4 cm nonhemorrhagic infarct of the right centrum semi-ovale. 2. Extensive chronic white matter microangiopathy. 3. Global cortical atrophy. 4. Tiny bilateral chronic cerebral and cerebellar microbleeds.
--- NOTE | 2018-06-02 15:13 | Discharge Summary ---
Providers - Providers Date of Admission: 05/28/18 13:23 Date of discharge: 06/02/18 Attending physician: RONAL CALZADA 05/28/18 Consult to Case Management [CONS] Routine Services Needed at Discharge: Home Health Services Notified:: yes If yes, spoke with:: Maria L Time called:: 11:00 05/28/18 21:46 Consult to Physician [CONS] Routine Comment: Consulting Provider: JETT MORALES Physician Instructions: Reason For Exam: TIA 05/28/18 21:49 Occupational Therapy Evaluate and Treat [CONS] Routine Comment: Reason For Exam: Neuro deficits Physical Therapy Evaluation and Treat [CONS] Routine Comment: Reason For Exam: Neuro deficits 06/01/18 10:34 Consult to Physician [CONS] Routine Comment: Consulting Provider: ISABELLE PHELPS Physician Instructions: Reason For Exam: carotid stenosis Consult to Physician [CONS] Urgent Comment: Consulting Provider: TONI HEART Physician Instructions: Reason For Exam: mitral stenosis Primary care physician: [employer] Hospitalization Reason for admission: stroke like symptom Condition: Stable Pertinent studies: Head CT Brain mRI/MRA carotid doppler 2d ceho Cxr Hospital course: The patient is an 87 yr old female with a history of hypertension and previous stroke approx 20 yrs ago presented to ED 0n 05/28 with complaint of numbness and weakness of the left upper extremity and bilateral lower extremities. CT brain revealed small vessel disease and a lt. chronic basal ganglia stroke. MRI brain showed acute/subacute right centrum infract. 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 Pt underwent echo on 05/28 which was TDS, showed mod to severe LVH, hyperdynamic LV, EF 75-80%. Cardiology has been consulted for mitral stenosis. Cardiology recommended medical mx.Patient was then discharged in stable condition. Discharg diagnosis: Possible CVA --admitted the patient to remote telemetry with stroke protocol - - 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 HEENT: Normocephalic. Atraumatic. No conjunctival congestion or icterus. Patient has moist mucous membranes. NECK: Supple. Trachea midline. CHEST/LUNGS: Clear to auscultated bilaterally, breathing nonlabored. No wheezes crackles or rhonchi. HEART/CARDIOVASCULAR: Regular in rate and rhythm. S1 and S2 positive. ABDOMEN: Abdomen is soft, nontender. Patient has normal bowel sounds. SKIN: There is no rash. Warm and dry. NEURO: Follows command. MUSCULOSKELETAL: No joint effusion or tenderness. EXTRIMITY: No edema, no cyanosis or clubbing. PSYCH: Cooperative. Disposition: DC/TX-06 HOME UNDER HOME [facility] Time spent for discharge: 34 minutes Core Measure Documentation - Palliative Care Palliative Care/ Comfort Measures: Not Applicable - Core Measures Any of the following diagnoses?: stroke - Stroke Discharge Requirements Statin for LDL = or >70 mg/dl on DC: Yes Anticoag for atrial fib/atrial flutter: Not Applicable Antithrombotic for ischemic stroke: Yes Exam - Constitutional Vitals: Temp Pulse Resp BP Pulse Ox 97.8 F 80 14 129/54 95 06/02/18 13:10 06/02/18 13:10 06/02/18 13:10 06/02/18 13:10 06/02/18 13:10 Plan Activity: advance as tolerated, fall precautions Weight Bearing Status: Non-Weight Bearing Diet: low fat, low salt Special Instructions: record daily BP diary, no heavy lifting Follow up with: [facility] [employer] [Provider Group] - 14 Days [facility] [Provider Group] - 14 Days [facility] [Provider Group] - 7 Days [facility], [Primary Care Provider] - 7 Days Prescriptions: AtorvaSTATin [Lipitor] 40 mg PO QHS #30 tablet
--- NOTE | 2018-06-02 15:16 | Progress Note ---
Assessment and Plan Altered mental status/CVA: Her previous neuro status has resolved per her family she has returned to her baseline statues. MRI results shows a acute/subacute 1.4 cm focal non hemorrhagic infarct to the right centrum semi ovale. Extensive white matter microangiography. Global cortical atrophy. Tiny chronic bilateral cerebellar and cerebral microbleeds. Carotid duplex shows right ICA stenosis < 50% and left ICA stenosis 50-69%. She can follow up outpatient for surveillance/management of her carotid artery disease. Recommend ASA and statin therapy Subjective Date of service: 06/02/18 Principal diagnosis: TIA/stroke Interval history: Evaluation conducted with family supervisor respiratory Patient awake alert. Sitting in bed. Family at bedside. No new complaints voiced. Objective - Constitutional Vitals: Vital Signs - 12hr 06/02/18 06/02/18 06/02/18 04:06 08:47 10:00 Temperature 97.8 F 98.3 F Pulse Rate 75 91 H 79 Respiratory 18 16 Rate Blood Pressure 122/47 147/68 O2 Sat by Pulse 96 95 Oximetry 06/02/18 13:10 Temperature 97.8 F Pulse Rate 80 Respiratory 14 Rate Blood Pressure 129/54 O2 Sat by Pulse 95 Oximetry General appearance: Present: well-nourished - Neck Neck: supple, normal ROM - Respiratory Respiratory effort: normal (nonlabored at rest) - Cardiovascular Rhythm: regular Heart Sounds: Present: S1 & S2 Extremities: Full ROM - Integumentary Integumentary: warm, dry - Musculoskeletal Musculoskeletal: strength equal bilaterally - Neurologic Neurologic: no focal deficits, moves all extremities, other (Alert oriented x 3) - Labs CBC & Chem 7: 05/29/18 04:59 05/29/18 04:49 Medications & Allergies - Medications Allergies/Adverse Reactions: Allergies No Known Allergies Allergy (Unverified 05/28/18 10:18) Home Medications: Home Medications Medication Instructions Recorded Confirmed Last Taken Type Labetalol [Normodyne TAB] 100 mg PO BID 05/28/18 05/28/18 Unknown History Aspirin [Adult Aspirin] 81 mg PO DAILY #30 06/02/18 05/28/18 Unknown Rx AtorvaSTATin [Lipitor] 40 mg PO QHS #30 tablet 06/02/18 Unknown Rx Losartan [Cozaar] 50 mg PO QDAY #30 06/02/18 05/28/18 Unknown Rx Active Medications: Generic Name Dose Route Start Last Admin Trade Name Freq PRN Reason Stop Dose Admin Acetaminophen 650 mg 05/28/18 21:46 05/29/18 12:11 Tylenol PO 650 mg Q4H PRN Administration Pain MILD(1-3)/Fever >100.5/AMADO Aspirin 81 mg 05/28/18 22:00 06/02/18 09:37 Halfprin Ec PO 81 mg DAILY MALIK Administration Atorvastatin Calcium 40 mg 05/28/18 22:00 06/01/18 21:49 Lipitor PO 40 mg QHS MALIK Administration Famotidine 10 mg 05/28/18 22:00 06/02/18 09:37 Pepcid PO 10 mg BID MALIK Administration Hydromorphone HCl 0.25 mg 05/28/18 21:46 Dilaudid IV Q3H PRN Pain, Moderate (4-6) Labetalol HCl 200 mg 06/01/18 11:00 06/02/18 09:37 Normodyne PO 200 mg BID MALIK Administration Lorazepam 2 mg 05/29/18 13:08 06/01/18 08:42 Ativan IV 2 mg Q4H PRN Administration Agitation Losartan Potassium 100 mg 05/28/18 22:00 06/02/18 09:39 Cozaar PO 100 mg QDAY MALIK Administration Ondansetron HCl 4 mg 05/28/18 21:46 Zofran IV Q8H PRN Nausea And Vomiting Sodium Chloride 10 ml 05/28/18 22:00 06/02/18 09:39 Sodium Chloride Flush Syringe 10 Ml IV 10 ml BID MALIK Administration Sodium Chloride 10 ml 05/28/18 21:46 Sodium Chloride Flush Syringe 10 Ml IV PRN PRN LINE FLUSH
--- NOTE | 2018-06-02 15:22 | Magnetic Resonance Report ---
MRA HEAD WITHOUT CONTRAST: 06/02/18 CLINICAL: Stroke. TECHNIQUE: Axial 3-D [id number] MR angiography of the [place] with review of axial source images. FINDINGS: Intact [place] with no aneurysm, stenosis or occlusion. Symmetric blood flow in the anterior, middle and posterior cerebral arteries. Normal basilar and vertebral arteries. The left vertebral artery is dominant. IMPRESSION: Normal study.
--- NOTE | 2018-06-08 17:06 | Query-Altered Level of Consc. ---
Jimmy Vogel Date:____06/08/18 Glass Furnace Operator/CDS:__elina/mary Phone#: [phone] Exercise your independent professional judgment when responding to this query. Questions asked do not imply a particular answer is desired or expected. We greatly appreciate your clarification on this issue. Clinical Documentation States: An 87 year old female with a past medical history of hypertension, presents with left sided weakness since 9 am. The patient feels woozy. 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% Clinical Findings Show: Please provide an appropriate diagnosis clarifying the Etiology and Acuity of this clinical scenario: [ ] Metabolic Encephalopathy [ ] Toxic Encephalopathy [ ] Toxic - Metabolic Encephalopathy [ ] Septic Encephalopathy with Sepsis [ ] Septic Encephalopathy without Sepsis [ ] Acute Hepatic Encephalopathy [ ] Subacute Hepatic Encephalopathy [ ] Other: [ x] Unable To Determine [ ]Comment/Explanation: Present on Admission: [ ] Yes (Y) [ ] Clinically undeterminable (W) [ ] No (N) Please also document response in your Progress Notes and/or Discharge Summary and indicate if the condition was present on admission. CAROL
== END 2018-06-02 17:03 | disposition home health service (06) | DRG 65 ==
LOC: ED 09:50 → 4A 13:23
PROVIDERS: ADMIT Internal Medicine; ATTEND Internal Medicine
DX: I63.9 Cerebral infarction, unspecified (principal); G81.94 Hemiplegia, unspecified affecting left nondominant side; I31.3 Pericardial effusion (noninflammatory); E44.0 Moderate protein-calorie malnutrition; Z68.1 Body mass index [BMI] 19.9 or less, adult; R29.701 NIHSS score 1; I05.2 Rheumatic mitral stenosis with insufficiency; I27.20 Pulmonary hypertension, unspecified; I65.22 Occlusion and stenosis of left carotid artery; R42 Dizziness and giddiness; R29.898 Other symptoms and signs involving the musculoskeletal system; I10 Essential (primary) hypertension; Z82.49 Family history of ischemic heart disease and other diseases of the circulatory system; Z79.82 Long term (current) use of aspirin; Z86.73 Personal history of transient ischemic attack (TIA), and cerebral infarction without residual deficits
CPT/HCPCS: 36415; 70450; 70544; 70551; 80053; 80061; 81001; 82550; 82553; 82962; 83036; 84484; 85025; 85610; 85670; 85730; 90686; 90732; 93005; 93010; 93306; 93880; G0378; A9270-GY; J0360; J2060

== ENCOUNTER 2020-03-18 10:38 | Inpatient (IN) | payer MEDICARE, MEDICAID ==
[2020-03-18] MEDS ORDERED: ONDANSETRON 4 MG/2 ML INJ IV ONE (11:37)
[2020-03-18] MEDS ORDERED: MORPHINE 4 MG/1 ML INJ IV ONE (11:37)
[2020-03-18] MEDS ORDERED: FAMOTIDINE 20 MG/2 ML INJ IV ONE (11:37)
--- NOTE | 2020-03-18 11:37 | Emergency Department Report ---
ED Abdominal Pain HPI - General Chief Complaint: Abdominal Pain Stated Complaint: ABD PAIN Time Seen by Provider: 03/18/20 11:29 Source: patient, family Mode of arrival: Ambulatory Limitations: Language Barrier - History of Present Illness Initial Comments: Patient is a 89-year-old female who is presenting with diffuse abdominal pain which is worse in the epigastrium. Patient has a past medical history of hypertension -: Gradual, days(s) (1) Location: diffuse, epigastric Radiation: back Migration to: no migration Severity: severe Severity scale (0 -10): 9 Quality: stabbing Consistency: constant Improves With: nothing Worsens With: nothing Associated Symptoms: nausea, vomiting, hematuria, anorexia. denies: diarrhea, fever, chills, constipation, dysuria - Related Data Home Medications Medication Instructions Recorded Confirmed Last Taken labetaloL [Labetalol 100mg TAB] 100 mg PO BID 05/28/18 05/28/18 Unknown Previous Rx's Medication Instructions Recorded Last Taken Type Aspirin [Adult Aspirin] 81 mg PO DAILY #30 06/02/18 Unknown Rx AtorvaSTATin [Lipitor] 40 mg PO QHS #30 tablet 06/02/18 Unknown Rx Losartan [Cozaar] 50 mg PO QDAY #30 06/02/18 Unknown Rx Allergies Allergy/AdvReac Type Severity Reaction Status Date / Time No Known Allergies Allergy Unverified 05/28/18 10:18 ED Review of Systems ROS: Stated complaint: ABD PAIN Other details as noted in HPI Comment: All other systems reviewed and negative ED Past Medical Hx - Past Medical History Previous Medical History?: Yes Hx Hypertension: Yes - Surgical History Past Surgical History?: Yes Additional Surgical History: right shoulder sx - Social History Smoking Status: Never Smoker Substance Use Type: None - Medications Home Medications: Home Medications Medication Instructions Recorded Confirmed Last Taken Type labetaloL [Labetalol 100mg TAB] 100 mg PO BID 05/28/18 05/28/18 Unknown History Aspirin [Adult Aspirin] 81 mg PO DAILY #30 06/02/18 05/28/18 Unknown Rx AtorvaSTATin [Lipitor] 40 mg PO QHS #30 tablet 06/02/18 Unknown Rx Losartan [Cozaar] 50 mg PO QDAY #30 06/02/18 05/28/18 Unknown Rx ED Physical Exam - General Limitations: Language Barrier General appearance: alert, in distress (secondary to pain) - Head Head exam: Present: atraumatic, normocephalic - Eye Eye exam: Present: normal appearance, PERRL, EOMI - ENT ENT exam: Present: mucous membranes moist - Neck Neck exam: Present: normal inspection - Respiratory Respiratory exam: Present: normal lung sounds bilaterally. Absent: respiratory distress, wheezes, rales, rhonchi - Cardiovascular Cardiovascular Exam: Present: regular rate, normal rhythm, normal heart sounds. Absent: systolic murmur, diastolic murmur, rubs, gallop - GI/Abdominal GI/Abdominal exam: Present: soft, tenderness, guarding (voluntary), normal bowel sounds. Absent: distended, rebound, rigid - Extremities Exam Extremities exam: Present: normal inspection - Back Exam Back exam: Present: normal inspection - Neurological Exam Neurological exam: Present: alert, oriented X3 - Psychiatric Psychiatric exam: Present: normal affect, normal mood - Skin Skin exam: Present: warm, dry, intact, normal color. Absent: rash ED Course Vital Signs 03/18/20 03/18/20 11:06 12:02 Temperature 97.4 F L Pulse Rate 59 L 68 Respiratory 18 16 Rate Blood Pressure 186/58 Blood Pressure 195/69 [Right] O2 Sat by Pulse 98 98 Oximetry ED Medical Decision Making - Lab Data Result diagrams: 03/18/20 11:48 03/18/20 11:48 Lab Results 03/18/20 03/18/20 Range/Units 11:48 11:48 WBC 6.0 (4.5-11.0) K/mm3 RBC 3.69 (3.65-5.03) M/mm3 Hgb 11.7 (10.1-14.3) gm/dl Hct 33.8 (30.3-42.9) % MCV 92 (79-97) fl MCH 32 (28-32) pg MCHC 35 H (30-34) % RDW 13.0 L (13.2-15.2) % Plt Count 115 L (140-440) K/mm3 Lymph % (Auto) 11.8 L (13.4-35.0) % [place] % (Auto) 0.9 (0.0-7.3) % Eos % (Auto) 0.6 (0.0-4.3) % Baso % (Auto) 1.1 (0.0-1.8) % Lymph # (Auto) 0.7 L (1.2-5.4) K/mm3 [place] # (Auto) 0.1 (0.0-0.8) K/mm3 Eos # (Auto) 0.0 (0.0-0.4) K/mm3 Baso # (Auto) 0.1 (0.0-0.1) K/mm3 Seg Neutrophils % 85.6 H (40.0-70.0) % Seg Neutrophils # 5.1 (1.8-7.7) K/mm3 Sodium 139 (137-145) mmol/L Potassium 4.4 (3.6-5.0) mmol/L Chloride 100.6 (98-107) mmol/L Carbon Dioxide 30 (22-30) mmol/L Anion Gap 13 mmol/L BUN 30 H (7-17) mg/dL Creatinine 1.1 (0.6-1.2) mg/dL Estimated GFR 47 ml/min BUN/Creatinine Ratio 27 % Glucose 131 H (65-100) mg/dL Calcium 9.2 (8.4-10.2) mg/dL Total Bilirubin 1.30 H (0.1-1.2) mg/dL AST 83 H (5-40) units/L ALT 60 H (7-56) units/L Alkaline Phosphatase 55 (35-129) units/L Total Protein 6.5 (6.3-8.2) g/dL Albumin 4.2 (3.9-5) g/dL Albumin/Globulin Ratio 1.8 % Lipase 2534 H (13-60) units/L - Radiology Data [facility] [address] [place] [address] Cat Scan Report Signed Patient: AIDE SALAZAR MR#: [id number] : 1930 Acct:[id number] Age/Sex: 89 / F ADM Date: 03/18/20 Loc: ED Attending Dr: Ordering Physician: OLVIN DING MD Date of Service: 03/18/20 Procedure(s): CT abdomen pelvis w con Accession Number(s): [id number] cc: OLVIN DING MD CT abdomen pelvis w con INDICATION: MAIN. TECHNIQUE: All CT scans at this location are performed using CT dose reduction for ALARA by means of automated exposure control. COMPARISON: None available. FINDINGS: Images are suboptimal because the patient could not raise her arms. Small to moderate-sized pericardial effusion. Moderate parenchymal density in the lung bases, especially on the left, is probably atelectasis. Liver is small and lobular, suggesting cirrhosis. Gallbladder is moderately distended, with tiny stones in the dependent portion and a small amount of fluid surrounding the gallbladder. Gallbladder wall is not appreciably thickened. There appears to be focal dilatation, maximum diameter 1.2 cm, of the pancreatic duct at the junction of the head and body. I see no abnormal mass. Common duct through the pancreatic head appears normal. Spleen is negative. Multiple small renal cysts bilaterally; kidneys and adrenals are otherwise negative. Abdominal aorta is atherosclerotic but normal in size. Pelvis Urinary bladder is moderately distended but otherwise negative. Uterus and adnexa appear negative. Extensive diverticulosis of the left and sigmoid colon but no appreciable diverticulitis. No free fluid. IMPRESSION: 1. Tiny gallstones with moderate gallbladder distention and small amount of fluid surrounding the gallbladder, but no gallbladder wall thickening. If acute cholecystitis is suggested clinically, ultrasound may be helpful. 2. Cystic lesion at the junction of the head and body of the pancreas appears to arise from the pancreatic duct. There is no evidence of significant ductal obstruction or a bnormal solid mass. Evaluation of possible mild pancreatitis is very difficult because of lack of image clarity. 3. Extensive left and sigmoid colon diverticulosis but no definite diverticulitis. Signer Name: Chace Barboza MD Signed: 03/18/2020 1:45 PM Workstation Name: [id number] - Medical Decision Making Patient's pain was relieved with morphine. She is no longer having nausea or vomiting. CT does show that she has possible cholecystitis and she was started on Zosyn. White count was normal. We will obtain ultrasound of the abdomen to get more detail of the gallbladder but there are definitely stones and some pericholecystic fluid. Patient also has a cyst on the pancreas and her pancreatic enzymes are elevated. Patient will be admitted to the hospitalist service. General surgery has been consulted as well. Critical Care Time: Yes (30) Critical care attestation.: If time is entered above; I have spent that time in minutes in the direct care of this critically ill patient, excluding procedure time. ED Disposition Clinical Impression: Acute pancreatitis, Cholecystitis, Mild dehydration, Asymptomatic hypertensive urgency Disposition: DC-09 OP ADMIT IP TO THIS HOSP Is pt being admited?: Yes Does the pt Need Aspirin: No Condition: Stable Time of Disposition: 14:27
[2020-03-18 12:10] LABS: Basophils # (Auto) 0.1 K/mm3 (0.0-0.1); Basophils % (Auto) 1.1 % (0.0-1.8); Eosinophils % (Auto) 0.6 % (0.0-4.3); Hematocrit 33.8 % (30.3-42.9); Hemoglobin 11.7 gm/dl (10.1-14.3); Lymphocytes # (Auto) 0.7 K/mm3 (1.2-5.4); Lymphocytes % (Auto) 11.8 % (13.4-35.0); Mean Corpuscular HGB Conc 35 % (30-34); Mean Corpuscular Volume 92 fl (79-97); Monocytes # (Auto) 0.1 K/mm3 (0.0-0.8); Monocytes % (Auto) 0.9 % (0.0-7.3); Platelet Count 115 K/mm3 (140-440); Red Blood Count 3.69 M/mm3 (3.65-5.03)
[2020-03-18 12:25] LABS: Albumin 4.2 g/dL (3.9-5); Calcium 9.2 mg/dL (8.4-10.2)
--- NOTE | 2020-03-18 13:49 | Cat Scan Report ---
CT abdomen pelvis w con INDICATION: MAIN. TECHNIQUE: All CT scans at this location are performed using CT dose reduction for ALARA by means of automated e xposure control. COMPARISON: None available. FINDINGS: Images are suboptimal because the patient could not raise her arms. Small to moderate-sized pericardial effusion. Moderate parenchymal density in the lung bases, especia lly on the left, is probably atelectasis. Liver is small and lobular, suggesting cirrhosis. Gallbladder is moderately distended, with tiny ston es in the dependent portion and a small amount of fluid surrounding the gallbladder. Gallbladder wall is not appreciably thickened. There appears to be focal dilatation, maximum diameter 1.2 cm, of the pancreatic duct at the junction of the head and body. I see no abnormal mass. Common duct through the pancreatic head appears normal . Spleen is negative. Multiple small renal cysts bilaterally; kidneys and adrenals are otherwise negati ve. Abdominal aorta is atherosclerotic but normal in size. Pelvis Urinary bladder is moderately distended but otherwise negative. Uterus and adnexa appear negative. Ex tensive diverticulosis of the left and sigmoid colon but no appreciable diverticulitis. No free fluid . IMPRESSION: 1. Tiny gallstones with moderate gallbladder distention and small amount of fluid surrounding the gal lbladder, but no gallbladder wall thickening. If acute cholecystitis is suggested clinically, ultraso und may be helpful. 2. Cystic lesion at the junction of the head and body of the pancreas appears to arise from the pancr eatic duct. There is no evidence of significant ductal obstruction or abnormal solid mass. Evaluation of possible mild pancreatitis is very difficult because of lack of image clarity. 3. Extensive left and sigmoid colon diverticulosis but no definite diverticulitis. Signer Name: Chace Barboza MD Signed: 03/18/2020 1:45 PM Workstation Name: [id number]
[2020-03-18] MEDS ORDERED: PIPERACIL/TAZOBACTA 4.5/NS 100 4.5 GM/100 ML VIAL IV ONE (13:58)
[2020-03-18] MEDS ORDERED: SODIUM CHLORIDE 0.9% 1000 ML 1,000 ML IV ONE (14:08)
--- NOTE | 2020-03-18 15:58 | Ultrasound Report ---
US abdomen limited INDICATION / CLINICAL INFORMATION: RUQ pain. COMPARISON: None available. FINDINGS: Liver is negative. Gallbladder is mildly distended and contains sludge, with a small amount of perich olecystic fluid. Common duct is normal in size. Pancreas is not well seen. IMPRESSION: 1. Gallbladder distention and sludge, with minimal fluid surrounding the gallbladder. These findings correlate with the CT done earlier today. Findings suggest chronic cholecystitis. Signer Name: Chace Barboza MD Signed: 03/18/2020 3:53 PM Workstation Name: [id number]
--- NOTE | 2020-03-19 00:10 | History and Physical Report ---
History of Present Illness Date of examination: 03/18/20 Date of admission: 03/18/20 15:02 Chief complaint: Abdominal pain for 1 day History of present illness: 89-year-old female with history of hypertension and hyperlipidemia comes in for severe epigastric pain and right upper quadrant pain of 1 day duration. Pain is about 10 on a scale of 1-10. No exacerbating or relieving factors. Nausea present. Loss of appetite present. Questionable blood in the urine. No diarrhea fever chills or constipation. No exposure to coronavirus. - Past Medical History Previous Medical History?: Yes Hx Hypertension: Yes - Surgical History Past Surgical History?: Yes Additional Surgical History: right shoulder sx - Social History Smoking Status: Never Smoker Substance Use Type: None -- family history HTN - Medications Home Medications: Home Medications Medication Instructions Recorded Confirmed Last Taken Type labetaloL [Labetalol 100mg TAB] 100 mg PO BID 05/28/18 05/28/18 Unknown History Aspirin [Adult Aspirin] 81 mg PO DAILY #30 06/02/18 05/28/18 Unknown Rx AtorvaSTATin [Lipitor] 40 mg PO QHS #30 tablet 06/02/18 Unknown Rx Losartan [Cozaar] 50 mg PO QDAY #30 06/02/18 05/28/18 Unknown Rx Review of Systems ROS: Constitutional no weight loss or weight gain no fever or chills HEENT no sore throat no post nasal drip no diplopia Neck no neck stiffness no lymph gland enlargement Chest and lungs no shortness of breath cough or wheezing CVS no chest pain no diaphoresis no palpitations GI epigastric pain associated with nausea pain is 10 on a scale of 1-10. Genitourinary system no dysuria no flank pain Musculoskeletal system no muscle pains no joint pains [employer] no syncope no seizures Skin no rash no itching Psychiatric no depression no homicidal or suicidal tendencies Hematologic no lymphedema or bruising Endocrine no polydipsia no polyuria no cold intolerance no heat intolerance Medications and Allergies Allergies Allergy/AdvReac Type Severity Reaction Status Date / Time No Known Allergies Allergy Unverified 05/28/18 10:18 Home Medications Medication Instructions Recorded Confirmed Last Taken Type labetaloL [Labetalol 100mg TAB] 100 mg PO BID 05/28/18 03/18/20 Unknown History Aspirin [Adult Aspirin] 81 mg PO DAILY #30 06/02/18 03/18/20 Unknown Rx AtorvaSTATin [Lipitor] 40 mg PO QHS #30 tablet 06/02/18 03/18/20 Unknown Rx Losartan [Cozaar] 50 mg PO QDAY #30 06/02/18 03/18/20 Unknown Rx Amlodipine Besylate [Norvasc] 2.5 mg PO DAILY 03/18/20 03/18/20 Unknown History Active Meds: Active Medications Sodium Chloride (Nacl 0.9% 1000 Ml) 1,000 mls @ 125 mls/hr IV DIRECT MALIK Exam - Constitutional Vitals: Temp Pulse Resp BP Pulse Ox 98.8 F 104 H 18 168/73 97 03/18/20 23:15 03/18/20 23:15 03/18/20 23:15 03/18/20 23:15 03/18/20 23:15 General appearance: Present: mild distress (Mild distress secondary to pain), well-nourished - EENT Eyes: Present: PERRL ENT: hearing intact, clear oral mucosa - Neck Neck: Present: supple, normal ROM - Respiratory Respiratory effort: normal Respiratory: bilateral: CTA - Cardiovascular Heart rate: 78 Rhythm: regular Heart Sounds: Present: S1 & S2. Absent: rub, click - Extremities Extremities: pulses symmetrical, No edema Peripheral Pulses: within normal limits - Abdominal General gastrointestinal: Present: soft, non-tender, non-distended, normal bowel sounds Female genitourinary: Present: normal - Rectal Rectal Exam: deferred - Integumentary Integumentary: Present: clear, warm, dry - Musculoskeletal Musculoskeletal: gait normal, strength equal bilaterally - Psychiatric Psychiatric: appropriate mood/affect, intact judgment & insight - Neurologic Neurologic: CNII-XII intact, moves all extremities - Allied Health Allied health notes reviewed: nursing, case management Results - Labs CBC & Chem 7: 03/19/20 07:41 03/19/20 07:41 Labs: Laboratory Last Values WBC 6.0 K/mm3 (4.5-11.0) 03/18/20 11:48 RBC 3.69 M/mm3 (3.65-5.03) 03/18/20 11:48 Hgb 11.7 gm/dl (10.1-14.3) 03/18/20 11:48 Hct 33.8 % (30.3-42.9) 03/18/20 11:48 MCV 92 fl (79-97) 03/18/20 11:48 MCH 32 pg (28-32) 03/18/20 11:48 MCHC 35 % (30-34) H 03/18/20 11:48 RDW 13.0 % (13.2-15.2) L 03/18/20 11:48 Plt Count 115 K/mm3 (140-440) L 03/18/20 11:48 Lymph % (Auto) 11.8 % (13.4-35.0) L 03/18/20 11:48 [place] % (Auto) 0.9 % (0.0-7.3) 03/18/20 11:48 Eos % (Auto) 0.6 % (0.0-4.3) 03/18/20 11:48 Baso % (Auto) 1.1 % (0.0-1.8) 03/18/20 11:48 Lymph # (Auto) 0.7 K/mm3 (1.2-5.4) L 03/18/20 11:48 [place] # (Auto) 0.1 K/mm3 (0.0-0.8) 03/18/20 11:48 Eos # (Auto) 0.0 K/mm3 (0.0-0.4) 03/18/20 11:48 Baso # (Auto) 0.1 K/mm3 (0.0-0.1) 03/18/20 11:48 Seg Neutrophils % 85.6 % (40.0-70.0) H 03/18/20 11:48 Seg Neutrophils # 5.1 K/mm3 (1.8-7.7) 03/18/20 11:48 Sodium 139 mmol/L (137-145) 03/18/20 11:48 Potassium 4.4 mmol/L (3.6-5.0) 03/18/20 11:48 Chloride 100.6 mmol/L (98-107) 03/18/20 11:48 Carbon Dioxide 30 mmol/L (22-30) 03/18/20 11:48 Anion Gap 13 mmol/L 03/18/20 11:48 BUN 30 mg/dL (7-17) H 03/18/20 11:48 Creatinine 1.1 mg/dL (0.6-1.2) 03/18/20 11:48 Estimated GFR 47 ml/min 03/18/20 11:48 BUN/Creatinine Ratio 27 % 03/18/20 11:48 Glucose 131 mg/dL (65-100) H 03/18/20 11:48 Calcium 9.2 mg/dL (8.4-10.2) 03/18/20 11:48 Total Bilirubin 1.30 mg/dL (0.1-1.2) H 03/18/20 11:48 AST 83 units/L (5-40) H 03/18/20 11:48 ALT 60 units/L (7-56) H 03/18/20 11:48 Alkaline Phosphatase 55 units/L (35-129) 03/18/20 11:48 Total Protein 6.5 g/dL (6.3-8.2) 03/18/20 11:48 Albumin 4.2 g/dL (3.9-5) 03/18/20 11:48 Albumin/Globulin Ratio 1.8 % 03/18/20 11:48 Lipase 2534 units/L (13-60) H 03/18/20 11:48 - Imaging and Cardiology Imaging and Cardiology: Abd Ct IMPRESSION: 1. Tiny gallstones with moderate gallbladder distention and small amount of fluid surrounding the gallbladder, but no gallbladder wall thickening. If acute cholecystitis is suggested clinically, ultrasound may be helpful. 2. Cystic lesion at the junction of the head and body of the pancreas appears to arise from the pancreatic duct. There is no evidence of significant ductal obstruction or abnormal solid mass. Evaluation of possible mild pancreatitis is very difficult because of lack of image clarity. 3. Extensive left and sigmoid c olon diverticulosis but no definite diverticulitis. Assessment and Plan Advance Directives: Yes (Full code change) VTE prophylaxis?: Chemical Plan of care discussed with patient/family: Yes - Patient Problems (1) Acute pancreatitis Current Visit: Yes Status: Acute Plan to address problem: Patient's clinical picture is consistent with acute pancreatitis. Amylase and lipase are elevated. Transaminitis present. Keep the patient n.p.o. IV fluids Pain control (2) Cholelithiasis Current Visit: Yes Status: Acute Plan to address problem: We will get ultrasound of the gallbladder Surgery consult May be incidental finding (3) HTN (hypertension) Current Visit: No Status: Chronic Qualifiers: Hypertension type: essential hypertension Qualified Code(s): I10 - Essential (primary) hypertension Plan to address problem: Patient initiated on Catapres patch (4) GERD (gastroesophageal reflux disease) Current Visit: Yes Status: Chronic Qualifiers: Esophagitis presence: without esophagitis Qualified Code(s): K21.9 - Ga stro-esophageal reflux disease without esophagitis Plan to address problem: On PPIs (5) Transaminitis Current Visit: Yes Status: Acute Plan to address problem: Possibly secondary to gallstone induced pancreatitis (6) DVT prophylaxis Current Visit: Yes Status: Acute Plan to address problem: On heparin and GI prophylaxis
[2020-03-19] MEDS ORDERED: oxyCODONE /ACETAMINOPHEN 5-325MG TAB PO PRN (00:11)
[2020-03-19] MEDS ORDERED: ACETAMINOPHEN 325 MG TAB PO PRN (00:11)
[2020-03-19] MEDS ORDERED: ONDANSETRON 4 MG/2 ML INJ IV PRN (00:11)
[2020-03-19] MEDS: SODIUM CHLORIDE 0.9% 1000 ML 1,000 ML IV SCH ×2 (01:48→06:08)
[2020-03-19 08:35] LABS: Basophils % (Auto) 0.1 % (0.0-1.8); Hematocrit 28.9 % (30.3-42.9); Hemoglobin 10.2 gm/dl (10.1-14.3); Lymphocytes # (Auto) 0.8 K/mm3 (1.2-5.4); Lymphocytes % (Auto) 4.6 % (13.4-35.0); Mean Corpuscular HGB Conc 35 % (30-34); Mean Corpuscular Volume 90 fl (79-97); Red Blood Count 3.21 M/mm3 (3.65-5.03); Red Cell Distribution Width 12.9 % (13.2-15.2)
[2020-03-19 08:36] LABS: Platelet Count 99 K/mm3 (140-440)
[2020-03-19 08:43] LABS: Albumin 3.3 g/dL (3.9-5); Calcium 8.2 mg/dL (8.4-10.2)
[2020-03-19] MEDS: HEPARIN 5,000 UNIT/1 ML VIAL SUB-Q SCH ×2 (09:43→23:24)
[2020-03-19] MEDS: PIPERACIL-TAZO 2.25 GM/50 ML 2.25 GM/50 ML BAG IV SCH ×3 (12:00→23:57)
[2020-03-19] MEDS ORDERED: PIPERACIL/TAZOBACTA 4.5/NS 100 4.5 GM/100 ML VIAL IV SCH (14:00)
--- NOTE | 2020-03-19 14:26 | Consultation ---
History of Present Illness Consult date: 03/19/20 Reason for consult: abdominal pain Chief complaint: Abdominal pain - History of present illness History of present illness: 89-year-old Green[place]ic-speaking female with a history of hypertension, hyperlipidemia who presented to the emergency room with epigastric and right upper quadrant abdominal pain x1 day. Associated with nausea. The patient is a poor historian and all history is obtained from the chart and from her granddaughter Ramon over the telephone. The patient was found to have an abnormal gallbladder on CT scan along with pancreatitis evidenced by an elevated lipase. She was admitted to the hospital for further work-up and treatment. Per the patient's granddaughter, the patient has a known history of gallbladder disease which was diagnosed in her home country of [place]. She only ever had mild symptoms. Also the patient does have a history of confusion although has never been formally diagnosed with dementia. Past History Past Medical History: hypertension, hyperlipidemia Past Surgical History: No surgical history Social history: no significant social history Family history: no significant family history Medications and Allergies Allergies Allergy/AdvReac Type Severity Reaction Status Date / Time No Known Allergies Allergy Unverified 05/28/18 10:18 Home Medications Medication Instructions Recorded Confirmed Last Taken Type labetaloL [Labetalol 100mg TAB] 100 mg PO BID 05/28/18 03/18/20 Unknown History Aspirin [Adult Aspirin] 81 mg PO DAILY #30 06/02/18 03/18/20 Unknown Rx AtorvaSTATin [Lipitor] 40 mg PO QHS #30 tablet 06/02/18 03/18/20 Unknown Rx Losartan [Cozaar] 50 mg PO QDAY #30 06/02/18 03/18/20 Unknown Rx Amlodipine Besylate [Norvasc] 2.5 mg PO DAILY 03/18/20 03/18/20 Unknown History Active Meds: Active Medications Acetaminophen (Tylenol) 650 mg PO Q4H PRN PRN Reason: Pain MILD(1-3)/Fever >100.5/AMADO Heparin Sodium (Porcine) (Heparin) 5,000 unit SUB-Q Q12HR MALIK Last Admin: 03/19/20 09:43 Dose: 5,000 unit Documented by: Hydromorphone HCl (Dilaudid) 0.5 mg IV Q3H PRN PRN Reason: Pain , Severe (7-10) Sodium Chloride (Nacl 0.9% 1000 Ml) 1,000 mls @ 100 mls/hr IV DIRECT [facility] Last Admin: 03/19/20 06:08 Dose: 100 mls/hr Documented by: Piperacillin Sod/Tazobactam Sod (Zosyn/Ns 2.25 Gm/50ml) 2.25 gm in 50 mls @ 100 mls/hr IV Q6HR MALIK Ondansetron HCl (Zofran) 4 mg IV Q8H PRN PRN Reason: Nausea And Vomiting Oxycodone/Acetaminophen (Percocet 5/325) 1 tab PO Q6H PRN PRN Reason: Pain, Moderate (4-6) Sodium Chloride (Sodium Chloride Flush Syringe 10 Ml) 10 ml IV BID MALIK Last Admin: 03/19/20 09:43 Dose: 10 ml Documented by: Sodium Chloride (Sodium Chloride Flush Syringe 10 Ml) 10 ml IV PRN PRN PRN Reason: LINE FLUSH Review of Systems All systems: negative (Limited ROS performed as patient is mildly confused) Exam Vital Signs Temp Pulse Resp BP Pulse Ox 97.4 F L 59 L 18 186/58 98 03/18/20 11:06 03/18/20 11:06 03/18/20 11:06 03/18/20 11:06 03/18/20 11:06 Narrative exam: Gen.: Pleasant, awake, alert, no apparent distress. Frail-appearing. ENT: Trachea midline. No lymphadenopathy. No scleral icterus or conjunctival pallor CV: S1, S2 present Respiratory: No audible wheezes Abdomen: Soft, nondistended, nontender. No rebound, rigidity, guarding Extremities: No clubbing, cyanosis, edema Results - Labs 03/19/20 07:41 03/19/20 07:41 Abnormal lab results 03/19/20 03/19/20 Range/Units 07:41 07:41 WBC 17.3 H (4.5-11.0) K/mm3 RBC 3.21 L (3.65-5.03) M/mm3 Hct 28.9 L (30.3-42.9) % MCHC 35 H (30-34) % RDW 12.9 L (13.2-15.2) % Plt Count 99 L (140-440) K/mm3 Lymph % (Auto) 4.6 L (13.4-35.0) % Lymph # (Auto) 0.8 L (1.2-5.4) K/mm3 [place] # (Auto) 1.0 H (0.0-0.8) K/mm3 Seg Neutrophils % 89.3 H (40.0-70.0) % Seg Neutrophils # 15.5 H (1.8-7.7) K/mm3 Chloride 108.0 H (98-107) mmol/L BUN 32 H (7-17) mg/dL Creatinine 1.3 H (0.6-1.2) mg/dL Calcium 8.2 L (8.4-10.2) mg/dL Total Bilirubin 1.50 H (0.1-1.2) mg/dL AST 73 H (5-40) units/L ALT 69 H (7-56) units/L Total Protein 5.5 L (6.3-8.2) g/dL Albumin 3.3 L (3.9-5) g/dL Amylase 1012 H (27-131) units/L Lipase 227 H (13-60) units/L Diabetes panel 03/19/20 03/19/20 Range/Units 07:41 07:41 Sodium 142 (137-145) mmol/L Potassium 4.3 (3.6-5.0) mmol/L Chloride 108.0 H (98-107) mmol/L Carbon Dioxide 25 (22-30) mmol/L BUN 32 H (7-17) mg/dL Creatinine 1.3 H (0.6-1.2) mg/dL Glucose 89 (65-100) mg/dL Hemoglobin A1c 5.3 (4-6) % Calcium 8.2 L (8.4-10.2) mg/dL AST 73 H (5-40) units/L ALT 69 H (7-56) units/L Alkaline Phosphatase 43 (35-129) units/L Total Protein 5.5 L (6.3-8.2) g/dL Albumin 3.3 L (3.9-5) g/dL Triglycerides 78 (2-149) mg/dL Calcium panel 03/19/20 Range/Units 07:41 Calcium 8.2 L (8.4-10.2) mg/dL Albumin 3.3 L (3.9-5) g/dL Pituitary panel 03/19/20 Range/Units 07:41 Sodium 142 (137-145) mmol/L Potassium 4.3 (3.6-5.0) mmol/L Chloride 108.0 H (98-107) mmol/L Carbon Dioxide 25 (22-30) mmol/L BUN 32 H (7-17) mg/dL Creatinine 1.3 H (0.6-1.2) mg/dL Glucose 89 (65-100) mg/dL Calcium 8.2 L (8.4-10.2) mg/dL Adrenal panel 03/19/20 Range/Units 07:41 Sodium 142 (137-145) mmol/L Potassium 4.3 (3.6-5.0) mmol/L Chloride 108.0 H (98-107) mmol/L Carbon Dioxide 25 (22-30) mmol/L BUN 32 H (7-17) mg/dL Creatinine 1.3 H (0.6-1.2) mg/dL Glucose 89 (65-100) mg/dL Calcium 8.2 L (8.4-10.2) mg/dL Total Bilirubin 1.50 H (0.1-1.2) mg/dL AST 73 H (5-40) units/L ALT 69 H (7-56) units/L Alkaline Phosphatase 43 (35-129) units/L Total Protein 5.5 L (6.3-8.2) g/dL Albumin 3.3 L (3.9-5) g/dL - Imaging CT scan - abdomen: report reviewed, image reviewed CT scan - pelvis: report reviewed, image reviewed US - abdomen: report reviewed, image reviewed Additional studies: Echo 05/28/19 -mod to severe LVH, hyperdynamic LV, EF 75-80%, mod to severe MS, mild MR, mild pulm HTN, mod pericardial effusion, no tamponade physiology is noted. Assessment and Plan 89-year-old female with gallstone pancreatitis, cholecystitis Pt stable. Pain is resolved. Plan: 1. Start CLD 2. IVF 3. IV abx. WBC trended up to 17.3 from 6, however no abx started overnight (only one dose given in ER yesterday) 4. trend LFTs, lipase, bilirubin 5. Recommend MRCP as bilirubin trending upwards, r/o choledocolithiasis 6. recommend Cardiology c/s for surgical risk stratification 7. DVT ppx 8. prn pain and nausea control Further rec's pending patient's clinical progress and results of MRI. Discussed the plan with the patient's granddaughter Ramon over telephone. She states that her family would prefer to avoid surgery, however she will discussed the plan with her uncle who is the patient's only living son. Thank you for this consultation. Please call with any questions or concerns. Evaluation and treatment of this patient was during the time of the national and state emergency arising from COVID19 coronavirus pandemic. Treatment and procedures performed meet the current and available best practice and guidelines for patient during the COVID pandemic.
[2020-03-19 16:01] LABS: Bilirubin,Urine NEG (Negative); Blood,Urine MOD (Negative); Color,Urine Yellow (Yellow); Mucus,Urine FEW /HPF; RBC,Urine < 1.0 /HPF (0.0-6.0); Urobilinogen,Urine < 2.0 mg/dL (<2.0)
[2020-03-19] MEDS: HYDROmorphone 1 MG/1 ML INJ IV PRN (17:21)
--- NOTE | 2020-03-19 18:54 | Magnetic Resonance Report ---
MR abdomen MRCP INDICATION / CLINICAL INFORMATION: gallstone pancreatitis r/o choledodo. TECHNIQUE: Multiplanar, multisequence MR images were obtained. COMPARISON: None available. FINDINGS: Common duct and central intrahepatic ducts are clearly demonstrated and unremarkable. No abnormal dis tention. No filling defects. Pancreatic duct also appears unremarkable. IMPRESSION: 1. Normal study. Signer Name: Chace Barboza MD Signed: 03/19/2020 6:49 PM Workstation Name: [id number]
--- NOTE | 2020-03-19 21:24 | Progress Note ---
Assessment and Plan - Patient Problems (1) Acute pancreatitis Status: Acute Plan to address problem: Patient's clinical picture is consistent with acute pancreatitis. Amylase and lipase are elevated. Transaminitis present. Keep the patient n.p.o. IV fluids Pain control Improving MRCP negative (2) Cholelithiasis Status: Acute Plan to address problem: MRCP negative Given the age Daughter and patient don't want surgery at this time (3) HTN (hypertension) Status: Chronic Qualifiers: Hypertension type: essential hypertension Qualified Code(s): I10 - Essential (primary) hypertension Plan to address problem: Patient initiated on Catapres patch (4) GERD (gastroesophageal reflux disease) Status: Chronic Qualifiers: Esophagitis presence: without esophagitis Qualified Code(s): K21.9 - Gastro-esophageal reflux disease without esophagitis Plan to address problem: On PPIs (5) Transaminitis Status: Acute Plan to address problem: Possibly secondary to gallstone induced pancreatitis (6) DVT prophylaxis Status: Acute Plan to address problem: On heparin and GI prophylaxis Subjective Date of service: 03/19/20 Principal diagnosis: Acute pancreatitis Interval history: 89-year-old female with history of hypertension and hyperlipidemia comes in for severe epigastric pain and right upper quadrant pain of 1 day duration. Pain is about 10 on a scale of 1-10. No exacerbating or relieving factors. Nausea present. Loss of appetite present. Questionable blood in the urine. No diarrhea fever chills or constipation. No exposure to coronavirus. Objective - Constitutional Vitals: Vital Signs - 12hr 03/19/20 15:23 Temperature 98.3 F Pulse Rate 99 H Respiratory 18 Rate Blood Pressure 177/70 O2 Sat by Pulse 91 Oximetry General appearance: Present: no acute distress, well-nourished - EENT Eyes: PERRL, EOM intact ENT: hearing intact, clear oral mucosa Ears: bilateral: normal - Neck Neck: supple, normal ROM - Respiratory Respiratory effort: normal Respiratory: bilateral: CTA - Breasts Breasts: normal - Cardiovascular Rhythm: regular Heart Sounds: Present: S1 & S2. Absent: gallop, rub Extremities: pulses intact, No edema, normal color, Full ROM - Gastrointestinal General gastrointestinal: Present: soft, non-tender, non-distended, normal bowel sounds - Genitourinary Female genitourinary: normal - Integumentary Integumentary: clear, warm, dry - Musculoskeletal Musculoskeletal: 1, strength equal bilaterally - Neurologic Neurologic: moves all extremities - Psychiatric Psychiatric: memory intact, appropriate mood/affect, intact judgment & insight - Labs CBC & Chem 7: 03/19/20 07:41 03/20/20 06:55 Labs: Abnormal lab results 03/19/20 03/19/20 Range/Units 07:41 07:41 WBC 17.3 H (4.5-11.0) K/mm3 RBC 3.21 L (3.65-5.03) M/mm3 Hct 28.9 L (30.3-42.9) % MCHC 35 H (30-34) % RDW 12.9 L (13.2-15.2) % Plt Count 99 L (140-440) K/mm3 Lymph % (Auto) 4.6 L (13.4-35.0) % Lymph # (Auto) 0.8 L (1.2-5.4) K/mm3 [place] # (Auto) 1.0 H (0.0-0.8) K/mm3 Seg Neutrophils % 89.3 H (40.0-70.0) % Seg Neutrophils # 15.5 H (1.8-7.7) K/mm3 Chloride 108.0 H (98-107) mmol/L BUN 32 H (7-17) mg/dL Creatinine 1.3 H (0.6-1.2) mg/dL Calcium 8.2 L (8.4-10.2) mg/dL Total Bilirubin 1.50 H (0.1-1.2) mg/dL AST 73 H (5-40) units/L ALT 69 H (7-56) units/L Total Protein 5.5 L (6.3-8.2) g/dL Albumin 3.3 L (3.9-5) g/dL Amylase 1012 H (27-131) units/L Lipase 227 H (13-60) units/L
[2020-03-20] MEDS: HYDROmorphone 1 MG/1 ML INJ IV PRN ×3 (02:11→21:33)
[2020-03-20] MEDS: PIPERACIL-TAZO 2.25 GM/50 ML 2.25 GM/50 ML BAG IV SCH ×3 (05:20→17:25)
[2020-03-20] MEDS: SODIUM CHLORIDE 0.9% 1000 ML 1,000 ML IV SCH (06:16)
[2020-03-20 08:20] LABS: Albumin 3.5 g/dL (3.9-5); Bilirubin,Direct 0.5 mg/dL (0-0.2); Calcium 8.7 mg/dL (8.4-10.2)
[2020-03-20] MEDS: HEPARIN 5,000 UNIT/1 ML VIAL SUB-Q SCH ×2 (09:20→22:01)
[2020-03-20] MEDS ORDERED: D5W/0.9% NACL 1,000 ML IV SCH (12:00)
--- NOTE | 2020-03-20 14:08 | Event Note ---
Date: 03/20/20 full consult dictated \- pt presents epigastric/ruq pain w/ noted increase lipase, labs consistent w/ pancreatitis, ultrasound/ct suggest gallstone etiology - MRCP negative - follow labs - no indication for ERCP - advance diet based on progress - need for lap [place] per surgery - basic pancreatitis management - will follow
--- NOTE | 2020-03-20 15:49 | Progress Note ---
Assessment and Plan 89-year-old female with gallstone pancreatitis, cholecystitis MRCP -negative Pt stable. No pain, nausea, vomiting. Afebrile. Plan: 1. Advance diet as tolerated 2. Gentle IVF 3. Repeat labs in a.m. LFTs, lipase trending down. Bilirubin mostly indirect 4. cards c/s pending 5. DVT ppx 6. continue abx Pt clinically improving. At her advanced age with comorbid conditions, would recommend conservative management without surgical intervention for gallstones. Will follow. D/W patient's granddaughter Ramon and son at bedside. Granddaughter agrees that family would prefer to avoid surgery if able. Thank you for this consultation. Please call with any questions or concerns. Evaluation and treatment of this patient was during the time of the national and state emergency arising from COVID19 coronavirus pandemic. Treatment and procedures performed meet the current and available best practice and guidelines for patient during the COVID pandemic. Subjective Date of service: 03/20/20 Narrative: Patient seen and examined. Denies pain, nausea, vomiting. Tolerating clear liquids. Afebrile. Son is at bedside. States patient wants to go home. She lives with him. Objective Vital Signs - 12hr 03/20/20 03/20/20 03/20/20 05:57 09:59 11:41 Temperature 98.2 F 98.8 F Pulse Rate 111 H Respiratory 18 16 Rate Blood Pressure 183/76 186/80 156/131 Blood Pressure [Right] O2 Sat by Pulse 98 Oximetry 03/20/20 12:13 Temperature Pulse Rate 134 H Respiratory Rate Blood Pressure Blood Pressure 196/96 [Right] O2 Sat by Pulse Oximetry - General physical appearance Narrative Exam: Gen.: Awake, alert, confused. No apparent distress ENT: Trachea midline. No lymphadenopathy. No scleral icterus or conjunctival pallor CV: S1, S2 present Respiratory: No audible wheezes Abdomen: Soft, nondistended, nontender. No rebound, rigidity, guarding Extremities: No clubbing, cyanosis, edema - Labs 03/19/20 07:41 03/20/20 06:55 Diabetes panel 03/20/20 Range/Units 06:55 Sodium 141 (137-145) mmol/L Potassium 4.0 (3.6-5.0) mmol/L Chloride 106.3 (98-107) mmol/L Carbon Dioxide 20 L (22-30) mmol/L BUN 39 H (7-17) mg/dL Creatinine 1.3 H (0.6-1.2) mg/dL Glucose 60 L (65-100) mg/dL Calcium 8.7 (8.4-10.2) mg/dL AST 88 H (5-40) units/L ALT 69 H (7-56) units/L Alkaline Phosphatase 70 (35-129) units/L Total Protein 6.2 L (6.3-8.2) g/dL Albumin 3.5 L (3.9-5) g/dL Calcium panel 03/20/20 Range/Units 06:55 Calcium 8.7 (8.4-10.2) mg/dL Albumin 3.5 L (3.9-5) g/dL Pituitary panel 03/20/20 Range/Units 06:55 Sodium 141 (137-145) mmol/L Potassium 4.0 (3.6-5.0) mmol/L Chloride 106.3 (98-107) mmol/L Carbon Dioxide 20 L (22-30) mmol/L BUN 39 H (7-17) mg/dL Creatinine 1.3 H (0.6-1.2) mg/dL Glucose 60 L (65-100) mg/dL Calcium 8.7 (8.4-10.2) mg/dL Adrenal panel 03/20/20 Range/Units 06:55 Sodium 141 (137-145) mmol/L Potassium 4.0 (3.6-5.0) mmol/L Chloride 106.3 (98-107) mmol/L Carbon Dioxide 20 L (22-30) mmol/L BUN 39 H (7-17) mg/dL Creatinine 1.3 H (0.6-1.2) mg/dL Glucose 60 L (65-100) mg/dL Calcium 8.7 (8.4-10.2) mg/dL Total Bilirubin 1.60 H (0.1-1.2) mg/dL AST 88 H (5-40) units/L ALT 69 H (7-56) units/L Alkaline Phosphatase 70 (35-129) units/L Total Protein 6.2 L (6.3-8.2) g/dL Albumin 3.5 L (3.9-5) g/dL
--- NOTE | 2020-03-20 19:41 | Progress Note ---
Assessment and Plan - Patient Problems (1) Acute pancreatitis Status: Acute Plan to address problem: Patient's clinical picture is consistent with acute pancreatitis. Amylase and lipaseimproved Transaminitis improved Advance diet as tolerated (2) Cholelithiasis Status: Acute Plan to address problem: We will get ultrasound of the gallbladder Surgery consult May be incidental finding (3) HTN (hypertension) Status: Chronic Qualifiers: Hypertension type: essential hypertension Qualified Code(s): I10 - [place] l (primary) hypertension Plan to address problem: Patient initiated on Catapres patch (4) GERD (gastroesophageal reflux disease) Status: Chronic Qualifiers: Esophagitis presence: without esophagitis Qualified Code(s): K21.9 - Gastro-esophageal reflux disease without esophagitis Plan to address problem: On PPIs (5) Transaminitis Status: Acute Plan to address problem: Possibly secondary to gallstone induced pancreatitis (6) DVT prophylaxis Status: Acute Plan to address problem: On heparin and GI prophylaxis Subjective Date of service: 03/20/20 Principal diagnosis: Acute pancreatitis Interval history: 89-year-old female with history of hypertension and hyperlipidemia comes in for severe epigastric pain and right upper quadrant pain of 1 day duration. Pain is about 10 on a scale of 1-10. No exacerbating or relieving factors. Nausea present. Loss of appetite present. Questionable blood in the urine. No diarrhea fever chills or constipation. No exposure to coronavirus. Objective - Constitutional Vitals: Vital Signs - 12hr 03/20/20 03/20/20 03/20/20 09:59 11:41 12:13 Temperature 98.8 F Pulse Rate 134 H Respiratory 16 Rate Blood Pressure 186/80 156/131 Blood Pressure 196/96 [Right] 03/20/20 16:26 Temperature 98.0 F Pulse Rate Respiratory 16 Rate Blood Pressure 194/82 Blood Pressure [Right] General appearance: Present: no acute distress, well-nourished - EENT Eyes: PERRL, EOM intact ENT: hearing intact, clear oral mucosa Ears: bilateral: normal - Neck Neck: supple, normal ROM - Respiratory Respiratory effort: normal Respiratory: bilateral: CTA - Breasts Breasts: normal - Cardiovascular Heart rate: 78 Rhythm: regular Heart Sounds: Present: S1 & S2. Absent: gallop, rub Extremities: pulses intact, No edema, normal color, Full ROM - Gastrointestinal General gastrointestinal: Present: soft, non-tender, non-distended, normal bowel sounds - Genitourinary Female genitourinary: normal - Integumentary Integumentary: clear, warm, dry - Musculoskeletal Musculoskeletal: 1, strength equal bilaterally - Neurologic Neurologic: moves all extremities - Psychiatric Psychiatric: memory intact, appropriate mood/affect, intact judgment & insight - Labs CBC & Chem 7: 03/19/20 07:41 03/20/20 06:55 Labs: Abnormal lab results 03/20/20 Range/Units 06:55 Carbon Dioxide 20 L (22-30) mmol/L BUN 39 H (7-17) mg/dL Creatinine 1.3 H (0.6-1.2) mg/dL Glucose 60 L (65-100) mg/dL Total Bilirubin 1.60 H (0.1-1.2) mg/dL Direct Bilirubin 0.5 H (0-0.2) mg/dL AST 88 H (5-40) units/L ALT 69 H (7-56) units/L Total Protein 6.2 L (6.3-8.2) g/dL Albumin 3.5 L (3.9-5) g/dL
[2020-03-20] MEDS ORDERED: cloNIDine TTS 0.2 MG/24 HR PATCH TD SCH (22:00)
[2020-03-21] MEDS ORDERED: HEPARIN 5,000 UNIT/1 ML VIAL ONE (00:09)
[2020-03-21] MEDS ORDERED: PIPERACILLIN IV ONE (00:09)
[2020-03-21] MEDS ORDERED: SODIUM CHLORIDE IV ONE (00:09)
[2020-03-21] MEDS ORDERED: TAZOBACTAM IV ONE (00:09)
[2020-03-21] MEDS ORDERED: D5NS 1000 ML IV SOLN IV ONE (00:09)
--- NOTE | 2020-03-21 16:42 | Consultation ---
REFERRING PHYSICIAN: Dr. Deb Ayala. INDICATION: 1. Abdominal pain. 2. Pancreatitis. HISTORY OF PRESENT ILLNESS: The patient is an 89-year-old female with history of hypertension, high cholesterol, who presents with epigastric pain. The patient reports epigastric right upper quadrant pain x 1-2 days. The patient reports worse with eating. She describes the pain as 10/10. She reports decreased appetite. She reports no significant NSAID use. She denies any lower GI symptoms including diarrhea, constipation or rectal bleeding. The patient subsequently came to the Emergency Room, had an ultrasound and also an MRCP and GI consulted to aid in management. PAST MEDICAL HISTORY: 1. Hypertension. 2. High cholesterol. PAST SURGICAL HISTORY: Right shoulder surgery. MEDICATIONS: Reviewed and updated in chart. ALLERGIES: No known drug allergies. SOCIAL HISTORY: Denies alcohol, tobacco or drug abuse. FAMILY HISTORY: Negative for colon cancer, IBD or liver disease. REVIEW OF SYSTEMS: GENERAL: Reports some weakness. HEENT: No visual complaints or tinnitus. PULMONARY: No shortness of breath. No cough. No chest pain. GASTROINTESTINAL: Reports abdominal pain. All points of 13-point review of systems otherwise negative. PHYSICAL EXAMINATION: VITAL SIGNS: Temperature of 98.8, pulse 110, respirations 18, blood pressure 196/90. GENERAL: Fairly nourished, thin female, in no acute distress. HEENT: Pupils equal, round and reactive. PULMONARY: Clear. CARDIOVASCULAR: Regular rhythm. Normal S1, S2. ABDOMEN: Positive bowel sounds, soft. SKIN: No obvious rashes. LABORATORY DATA: Pertinent for a white count of 17.3, hemoglobin and hematocrit of 10.2 and 28.9, platelet count of 99. Chem-7 within normal limits except for BUN and creatinine of 32 and 1.3. AST and ALT of 73 and 69 with a total bilirubin of 1.5 and an alkaline phosphatase of 43. Abdominal ultrasound performed on 03/18/2020 showed gallbladder distended and sludge with minimal fluid surrounding the gallbladder suggestive of chronic cholecystitis. MRCP was negative. CT scan also suggestive of cholecystitis, performed on 03/18/2020 with gallstones noted in the gallbladder and distended. ASSESSMENT: An 89-year-old female presents with 1-2 days of epigastric right upper quadrant pain with noted increased liver function tests and CT and ultrasound suggestive of gallbladder disease and cholecystitis. The patient had MRCP, which was negative for any common bile duct stone. Suggest cholecystitis, leading to pancreatitis. It should be noted that the patient's labs initially showed a lipase of 700's, now down to 27. Of concern is that her white count, which initially 17 yesterday. CBC is pending for today. Management as noted below. PLAN: 1. Surgery consult noted. We will await further input. 2. Given negative MRCP, no indication for ERCP at this time. 3. Basic pancreatitis management with the patient on clear liquid diet and we will follow. 4. Follow labs including lipase and CRP while ruling out other etiologies of pancreatitis. 5. Surgical intervention for laparoscopic cholecystectomy per surgery team. Would suggest IOC done at that time. 6. No indication for endoscopy at this time. 7. We will follow further recommendation based on progress and results of the above. JOB# [id number] SHERRIE/MANJEET MEDINA
[2020-03-21 17:13] VITALS: BP 181/82
[2020-03-21] MEDS ORDERED: hydrALAZINE 20 MG/1 ML INJ IV PRN (17:40)
--- NOTE | 2020-03-21 23:24 | Discharge Summary ---
Providers - Providers Date of Admission: 03/20/20 13:59 Date of discharge: 03/21/20 Attending physician: MANUEL PENNINGTON 03/18/20 14:27 Consult to Physician [CONS] Urgent Comment: Consulting Provider: SYDNEE GRANADO Physician Instructions: Reason For Exam: cholecytitis with gallstone pancreatitis 03/19/20 15:24 Consult to Physician [CONS] Routine Comment: Consulting Provider: CARLOTA ROQUE Physician Instructions: Reason For Exam: surgical risk stratification 03/19/20 15:25 Consult to Physician [CONS] Routine Comment: Consulting Provider: ISABELLE ANNE Physician Instructions: Reason For Exam: gs pancreatitis, possible choledodo Primary care physician: [employer]EC[employer]IVE Hospitalization Condition: Stable Hospital course: (1) Acute pancreatitis Status: Acute Plan to address problem: Improved (2) Cholelithiasis Status: Acute Plan to address problem: No surgery at this time 89-year-old female with gallstone pancreatitis, cholecystitis MRCP -negative Pt stable. No pain, nausea, vomiting. Afebrile. Plan: 1. Advance diet 2.Continue oral abxcontinue abx Pt clinically improving. At her advanced age with comorbid conditions, would recommend conservative management without surgical intervention for gallstones. Will follow. D/W patient's granddaughter Ramon and son at bedside. Granddaughter agrees that family would prefer to avoid surgery if able. (3) HTN (hypertension) Status: Chronic Qualifiers: Hypertension type: essential hypertension Qualified Code(s): I10 - Essential (primary) hypertension Plan to address problem: Patient initiated on Catapres patch (4) GERD (gastroesophageal reflux disease) Status: Chronic Qualifiers: Esophagitis presence: without esophagitis Qualified Code(s): K21.9 - Gastro-esophageal reflux disease without esophagitis Plan to address problem: On PPIs (5) Transaminitis Status: Acute Plan to address problem: Possibly secondary to gallstone induced pancreatitis Disposition: - TO HOME OR SELFCARE - Discharge Diagnoses (1) Acute pancreatitis Status: Acute Comment: 35 minutes (2) Cholelithiasis Status: Acute (3) HTN (hypertension) Status: Chronic Qualifiers: Hypertension type: essential hypertension Qualified Code(s): I10 - Essential (primary) hypertension (4) GERD (gastroesophageal reflux disease) Status: Chronic Qualifiers: Esophagitis presence: without esophagitis Qualified Code(s): K21.9 - Gastro-esophageal reflux disease without esophagitis (5) Transaminitis Status: Acute (6) DVT prophylaxis Status: Acute Core Measure Documentation - Palliative Care Palliative Care/ Comfort Measures: Not Applicable - Core Measures Any of the following diagnoses?: none Exam - Constitutional Vitals: Temp Pulse Resp BP Pulse Ox 97 F L 111 H 18 181/82 96 03/21/20 16:00 03/21/20 16:00 03/21/20 16:00 03/21/20 16:00 03/21/20 16:00 General appearance: Present: no acute distress, well-nourished - EENT Eyes: Present: PERRL ENT: hearing intact, clear oral mucosa - Neck Neck: Present: supple, normal ROM - Respiratory Respiratory effort: normal Respiratory: bilateral: CTA - Cardiovascular Heart rate: 78 Rhythm: regular Heart Sounds: Present: S1 & S2. Absent: rub, click - Extremities Extremities: pulses symmetrical, No edema Peripheral Pulses: within normal limits - Abdominal General gastrointestinal: Present: soft, non-tender, non-distended, normal bowel sounds Female genitourinary: Present: normal - Rectal Rectal Exam: deferred - Integumentary Integumentary: Present: clear, warm, dry - Musculoskeletal Musculoskeletal: gait normal, strength equal bilaterally - Psychiatric Psychiatric: appropriate mood/affect, intact judgment & insight - Neurologic Neurologic: CNII-XII intact, moves all extremities Plan Activity: no restrictions, advance as tolerated Diet: low salt Follow up with: PRIMARY CARE, [Primary Care Provider] - 3-5 Days SYDNEE GRANADO DO [Staff Physician] - 7 Days
--- NOTE | 2020-03-22 09:11 | Consultation ---
History of Present Illness Consult date: 03/21/20 Requesting physician: SYDNEE GRANADO Consult reason: pre op evaluation History of present illness: The patient is an 89 yr old female with a history of mitral stenosis, hypertension, HLP, and previous stroke approx 20 yrs ago. She has been seen in our office by Dr. Ortiz. She presented with c/o severe epigastric pain and right upper quadrant pain for 1 day prior to arrival. Pain is about 10 on a scale of 1-10. No exacerbating or relieving factors. Nausea present. Loss of appetite present. Questionable blood in the urine. No diarrhea fever chills or constipation. No exposure to coronavirus. Pt subsequently diagnosed with acute pancreatitis, MRCP negative, and cholelithiasis. Pt may require cholecystecotmy and thus cardiology has been consulted for preoperative cardiac risk stratifications. Pt denies any occurrence of chest pain, palpitations, n/v, diaphoresis, dizziness or syncope. Past History Past Medical History: hypertension, hyperlipidemia Past Surgical History: No surgical history Social history: no significant social history Family history: no significant family history Medications and Allergies Allergies Allergy/AdvReac Type Severity Reaction Status Date / Time No Known Allergies Allergy Unverified 05/28/18 10:18 Home Medications Medication Instructions Recorded Confirmed Last Taken Type labetaloL [Labetalol 100mg TAB] 100 mg PO BID 05/28/18 03/18/20 Unknown History Aspirin [Adult Aspirin] 81 mg PO DAILY #30 06/02/18 03/18/20 Unknown Rx AtorvaSTATin [Lipitor] 40 mg PO QHS #30 tablet 06/02/18 03/18/20 Unknown Rx Losartan [Cozaar] 50 mg PO QDAY #30 06/02/18 03/18/20 Unknown Rx Amlodipine Besylate [Norvasc] 2.5 mg PO DAILY 03/18/20 03/18/20 Unknown History Review of Systems Constitutional: no fever, no chills, no sweats Ears, nose, mouth and throat: no ear pain, no nose pain, no sinus pressure, no sinus pain Cardiovascular: no chest pain, no orthopnea, no palpitations, no rapid/irregular heart beat, no edema, no syncope, no lightheadedness, no shortness of breath, no dyspnea on exertion Respiratory: no cough, no shortness of breath, no dyspnea on exertion, no congestion, no wheezing, no pain on inspiration Gastrointestinal: abdominal pain, nausea Genitourinary Female: no pelvic pain, no flank pain, no dysuria, no urinary frequency, no urgency Musculoskeletal: no neck stiffness, no neck pain, no shooting arm pain, no arm numbness/tingling, no low back pain, no shooting leg pain Integumentary: no rash, no pruritis, no redness, no sores, no wounds Neurological: no head injury, no paralysis, no weakness, no parathesias, no numbness, no tingling, no seizures, no syncope Psychiatric: no anxiety Endocrine: no cold intolerance, no heat intolerance Hematologic/Lymphatic: no easy bruising Allergic/Immunologic: no urticaria Physical Examination Vital Signs Temp Pulse Resp BP Pulse Ox 97.4 F L 59 L 18 186/58 98 03/18/20 11:06 03/18/20 11:06 03/18/20 11:06 03/18/20 11:06 03/18/20 11:06 General appearance: no acute distress HEENT: Positive: PERRL, Normocephaly, Mucus Membranes Moist Neck: Positive: neck supple, trachea midline Cardiac: Positive: Reg Rate and Rhythm, S1/S2 Lungs: Positive: Decreased Breath Sounds Neuro: Positive: Grossly Intact Abdomen: Positive: Tender (epigastric) Musculoskeletal: No Pain Extremities: Absent: edema Results 03/19/20 07:41 03/20/20 06:55 - Imaging and Cardiology Echo: report reviewed Assessment and Plan DOS: 03/21/2020 tte reviewed - EF 50-55%, impaired relaxation, moderate MS with mean gradient 8mmHg, mild TR, RVSP 50mmHg, small circumferential pericardial effusion with no hemodynamic compromise noted. tte done 05/2018 was TDS, showed mod to severe LVH, hyperdynamic LV, EF 75-80%, mod to severe MS with mean gradient 9mmHg, mild MR, mild pulm HTN, mod pericardial effusion, no tamponade physiology is noted. Pt is known to have mitral stenosis. Per cardiology progress note from [facility] hospitalization in 05/2018 - No clinical evidence of acute heart failure. Her mitral stenosis is an incidental finding and she appears comfortable and stable from a cardiac standpoint at this time. Echo results reviewed with pt and pt's son at bedside and they wish to proceed with conservative medical management at this time. Will follow closely as OP. Currently stable cardiac status. Pt is at moderate cardiovascular risk for contemplated surgery given her advanced age and multiple co-morbidities. Per general surgery - Pt clinically improving. At her advanced age with comorbid conditions, would recommend conservative management without surgical intervention for gallstones. Will follow. D/W patient's granddaughter Ramon and son at bedside. Granddaughter agrees that family would prefer to avoid surgery if able. Pt discharged in stable condition. Recommend pt follow up with Dr. Ortiz within 2 weeks ([phone]). The patient has been seen in conjunction with Dr. Che who agrees with the assessment and plan of care. - Patient Problems (1) Acute pancreatitis Status: Acute (2) Cholelithiasis Status: Acute (3) HTN (hypertension) Status: Chronic Qualifiers: Hypertension type: essential hypertension Qualified Code(s): I10 - Essential (primary) hypertension (4) Hyperlipidemia Status: Chronic (5) History of CVA (cerebrovascular accident) Status: Chronic
--- NOTE | 2020-03-22 14:38 | Gastroenterology Progress Note ---
Assessment and Plan GI: pt overall improved - advance diet as tolerated - will sign off, call if needed Subjective Date of service: 03/21/20 Principal diagnosis: Acute pancreatitis Interval history: - pt tolerating po today, denies other complaints Objective - Constitutional Vitals: Temp Pulse Resp BP Pulse Ox 97 F L 111 H 18 181/82 96 03/21/20 16:00 03/21/20 16:00 03/21/20 16:00 03/21/20 16:00 03/21/20 16:00 General appearance: no acute distress - EENT Eyes: PERRL - Respiratory Respiratory: bilateral: CTA - Cardiovascular Rhythm: regular Heart Sounds: Present: S1 & S2 - Gastrointestinal General gastrointestinal: Present: soft, non-tender, non-distended - Labs CBC & Chem 7: 03/19/20 07:41 03/20/20 06:55
== END 2020-03-21 17:00 | disposition home or self-care (01) | DRG 439 ==
LOC: ED 10:38 → 3A 15:02 → 3B-SURG 20:26 → OBSVTOIN 03-20 13:59
PROVIDERS: ADMIT Internal Medicine; ATTEND Internal Medicine
DX: K85.10 Biliary acute pancreatitis without necrosis or infection (principal); K80.10 Calculus of gallbladder with chronic cholecystitis without obstruction; I16.0 Hypertensive urgency; E86.0 Dehydration; I10 Essential (primary) hypertension; K21.9 Gastro-esophageal reflux disease without esophagitis; E78.5 Hyperlipidemia, unspecified; Z82.49 Family history of ischemic heart disease and other diseases of the circulatory system; Z86.73 Personal history of transient ischemic attack (TIA), and cerebral infarction without residual deficits
CPT/HCPCS: 36415; 74177; 74181; 76705; 80053; 81001; 82150; 82247; 82248; 83036; 83690; 84478; 85025; 93306; 96365; 96375; G0378; J1170; J1644; J2270; J2405; J2543; J7030; J7042; Q9967

== ENCOUNTER 2020-04-18 10:02 | Outpatient (CLI) | payer MEDICARE ==
[2020-04-18 10:31] LABS: Basophils % (Auto) 0.6 % (0.0-1.8); Eosinophils # (Auto) 0.1 K/mm3 (0.0-0.4); Eosinophils % (Auto) 1.8 % (0.0-4.3); Hematocrit 32.6 % (30.3-42.9); Lymphocytes # (Auto) 1.2 K/mm3 (1.2-5.4); Lymphocytes % (Auto) 23.7 % (13.4-35.0); Mean Corpuscular HGB Conc 34 % (30-34); Mean Corpuscular Volume 92 fl (79-97); Monocytes # (Auto) 0.6 K/mm3 (0.0-0.8); Monocytes % (Auto) 12.9 % (0.0-7.3); Red Blood Count 3.54 M/mm3 (3.65-5.03); Red Cell Distribution Width 14.1 % (13.2-15.2)
[2020-04-18 10:35] LABS: Platelet Count 90 K/mm3 (140-440)
[2020-04-18 10:57] LABS: Calcium 9.1 mg/dL (8.4-10.2); Chol/HDL Ratio 2.09 %
== END 2020-04-18 10:03 | disposition home or self-care (01) ==
LOC: LAB 10:02
PROVIDERS: ATTEND Internal Medicine
DX: I10 Essential (primary) hypertension (principal); N39.0 Urinary tract infection, site not specified; K85.90 Acute pancreatitis without necrosis or infection, unspecified; A49.9 Bacterial infection, unspecified
CPT/HCPCS: 36415; 80053; 80061; 85025

== ENCOUNTER 2020-09-26 09:50 | Outpatient (CLI) | payer MEDICARE ==
[2020-09-26 10:28] LABS: Basophils % (Auto) 0.4 % (0.0-1.8); Eosinophils # (Auto) 0.1 K/mm3 (0.0-0.4); Eosinophils % (Auto) 1.4 % (0.0-4.3); Hemoglobin 11.3 gm/dl (10.1-14.3); Lymphocytes # (Auto) 1.7 K/mm3 (1.2-5.4); Lymphocytes % (Auto) 21.3 % (13.4-35.0); Mean Corpuscular HGB Conc 35 % (30-34); Mean Corpuscular Volume 91 fl (79-97); Monocytes # (Auto) 0.5 K/mm3 (0.0-0.8); Monocytes % (Auto) 6.6 % (0.0-7.3); Platelet Count 126 K/mm3 (140-440); Red Blood Count 3.53 M/mm3 (3.65-5.03)
[2020-09-26 10:52] LABS: Albumin 4.4 g/dL (3.9-5)
== END 2020-09-26 09:51 | disposition home or self-care (01) ==
LOC: LAB 09:50
PROVIDERS: ATTEND Internal Medicine
DX: K57.30 Diverticulosis of large intestine without perforation or abscess without bleeding (principal); R10.9 Unspecified abdominal pain; K85.91 Acute pancreatitis with uninfected necrosis, unspecified
CPT/HCPCS: 36415; 80053; 83690; 85025

== ENCOUNTER 2020-10-23 12:02 | Emergency (ER) | payer MEDICARE ==
[2020-10-23 12:28] VITALS: BP 142/60
--- NOTE | 2020-10-23 13:53 | Event Note ---
ED Screening Note Date of service: 10/23/20 Time: 13:48 ED Screening Note: 89-year-old female patient presents to the emergency department with complaints of traumatic back pain starting 4 days ago. Patient reportedly fell from a standing position. The fall was not witnessed. She is unsure if she sustained a mechanical fall or if she lost consciousness causing her to fall. General: Awake, appropriately interactive, no acute distress. Neck: Supple. Full range of motion intact. Cardiovascular: Normal peripheral perfusion. Pulmonary: No respiratory distress. Patient is speaking normally without use of accessory muscles. Skin: No apparent rashes or lesions. Neurological: No facial asymmetry. Speech is clear. Follows commands. Patient is alert and oriented. Musculoskeletal: Moves all four extremities spontaneously with normal range of motion. Psych: Cooperative. Appropriate mood and affect. Syncope work-up initiated; choice of imaging study deferred to additional ED providers following full physical examination. I have greeted and performed a focused rapid initial assessment of this patient. A comprehensive ED assessment and evaluation of the patient, analysis of all test results, and completion of the medical decision-making process will be conducted by additional ED providers. This initial assessment/diagnostic orders/clinical plan/treatment(s) is/are subject to change based on patients health status, clinical progression and re-assessment. Further treatment and workup at subsequent clinical provider's discretion. Patient/guardian urged not to elope from the ED as their condition may be serious if not clinically assessed and managed.
[2020-10-23 14:39] LABS: Basophils % (Auto) 0.4 % (0.0-1.8); Eosinophils # (Auto) 0.1 K/mm3 (0.0-0.4); Eosinophils % (Auto) 1.9 % (0.0-4.3); Hematocrit 30.6 % (30.3-42.9); Hemoglobin 10.8 gm/dl (10.1-14.3); Lymphocytes # (Auto) 1.4 K/mm3 (1.2-5.4); Lymphocytes % (Auto) 21.6 % (13.4-35.0); Mean Corpuscular HGB Conc 35 % (30-34); Mean Corpuscular Volume 91 fl (79-97); Monocytes # (Auto) 0.6 K/mm3 (0.0-0.8); Monocytes % (Auto) 9.8 % (0.0-7.3); Platelet Count 138 K/mm3 (140-440); Red Blood Count 3.37 M/mm3 (3.65-5.03); Red Cell Distribution Width 12.8 % (13.2-15.2)
[2020-10-23 14:58] LABS: Alanine Aminotransferase 20 units/L (7-56); Albumin 4.2 g/dL (3.9-5); BUN/Creatinine Ratio 31; Blood Urea Nitrogen 34 mg/dL (7-17); Calcium 8.7 mg/dL (8.4-10.2); Hemolysis Index 2
--- NOTE | 2020-10-25 10:12 | Electrocardiograph Report ---
[facility] Test Date: 2020-10-23 Test Time: 12:31:53 Pat Name: AIDE SALAZAR Department: Room: Gender: F Refrigerating Technician: KEVIN : [id number] Requested By: BETO MOORE Order Number: [id number] Reading MD: Torin Saul Measurements Intervals [place] Rate: 72 P: 51 SD: 227 QRS: -7 QRSD: 80 T: 91 QT: 395 QTc: 434 Interpretive Statements Sinus rhythm Prolonged SD interval No previous ECG available for comparison Electronically Signed On 10-25-2020 10:11:33 EDT by Torin Saul
== END 2020-10-23 20:56 | disposition left against medical advice (07) ==
LOC: ED 12:02
DX: M54.5 Low back pain (principal); Z53.21 Procedure and treatment not carried out due to patient leaving prior to being seen by health care provider
CPT/HCPCS: 36415; 80053; 83735; 84484; 85025; 93005

== ENCOUNTER 2020-10-24 14:47 | Outpatient (CLI) | payer MEDICARE ==
--- NOTE | 2020-10-24 16:05 | XRay Report ---
LUMBOSACRAL SPINE 3 VIEWS INDICATION: BILATERAL HIP PAIN. COMPARISON: CT abdomen pelvis dated 03/18/2020 IMPRESSION: Subtle superior endplate deformity at L2 is identified which appears to be new since CT. Loss of height is approximately 10%. The remaining lumbar vertebra are intact. There is 3 -4 mm anterolisthesis of L5 with respect to the sacrum which appears to be secondary to degenerative facet arthropathy. 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 The sacrum a nd SI joints are grossly unremarkable although partially obscured by stool in the colon. Mild osteope ezekiel is evident. BILATERAL HIPS 3 VIEWS INDICATION: BILATERAL HIP PAIN. COMPARISON: None. IMPRESSION: No acute osseous or soft tissue abnormality. No significant DJD. Mild osteopenia is n oted. Signer Name: Ernesto Miner Jr, MD Signed: 10/24/2020 3:54 PM Workstation Name: [id number]
== END 2020-10-24 14:48 | disposition home or self-care (01) ==
LOC: XRAY 14:47
PROVIDERS: ATTEND Internal Medicine
DX: M43.16 Spondylolisthesis, lumbar region (principal); M85.852 Other specified disorders of bone density and structure, left thigh; M85.851 Other specified disorders of bone density and structure, right thigh; M85.88 Other specified disorders of bone density and structure, other site
CPT/HCPCS: 72100; 73521